=== PATIENT | male | born 1945 | race Caucasian/White ===

== ENCOUNTER 2020-07-11 14:39 | Outpatient (CLI) | payer MEDICARE, OTHER, SELFPAY ==
--- NOTE | ~2020-07-11 | MR_ITS ---
EXAMINATION: MR shoulder RT wo con DATE: 07/11/2020 15:34 INDICATION: Right shoulder pain TECHNIQUE: Magnetic resonance imaging (MRI) of the right shoulder was performed without intravenous c ontrast. Sequences included axial PD-weighted FS FSE, coronal oblique PD-weighted FS FSE, coronal obl ique T2-weighted FS FSE, sagittal PD-weighted FS FSE, and sagittal T1-weighted SE. COMPARISON: None. FINDINGS: Coracoacromial arch: The acromion undersurface is curved in morphology (type II). The coracoacromial ligament is normal. M ild acromioclavicular osteoarthritis. Rotator cuff: Moderate supraspinatus and mild infraspinatus tendinopathy. There is a moderate-sized articular sided tear extending approximately 2.3 cm AP along the superior and middle facet footplates of the suprasp inatus and infraspinatus tendons. The majority of the tear involves approximately one third to one bobo lf of the tendon thickness. The anteriormost 5 mm of the tear is more severe involving approximately two thirds of the tendon thickness. Mild subscapularis tendinopathy with small partial-thickness tear involving a small portion of the superolateral lesser tuberosity footplate of the subscapularis tend on. The long head biceps tendon is partially subluxed across the cephalad medial rim of the intertube rcular groove and into the tear defect. Normal rotator cuff muscle bulk and signal. Biceps tendon, glenoid labrum and glenohumeral cartilage: Moderate tendinopathy and likely still split tearing of the long head biceps tendon. Their peers to b e a mild partial thickness tear at the extra articular portion of the tendon involving less than 50% the tendon thickness. 3-4 mm likely loose body chronic by small amount of fluid and/or tenosynovitis in the extra articular long head biceps tendon sheath. There is a tear at the base of the superior to posterior superior glenoid labrum. More amorphous degenerative tearing of the anterosuperior inferio r glenoid labrum. Diffuse mild partial-thickness cartilage loss of the glenoid with more severe deep chondral ulceration and fissuring at the inferior glenoid. Subarticular cystic change at the anterosu perior, inferior and posterior inferior rim of the glenoid. Additional mild partial-thickness cartila ge loss with smooth chondral surface at the inferomedial aspect of the humeral head. Fluid: Physiologic amount of fluid in the glenohumeral joint. No loose osteochondral bodies. No abnormally i ncreased fluid in the subacromial/subdeltoid bursa to suggest bursitis. Bones: Bone alignment is normal. No fracture or pathologic marrow replacing process. Minimal hypertrophic an d cystic changes along the greater tuberosity likely related to chronic rotator cuff disease. IMPRESSION: 1. Mild glenohumeral osteoarthritis with high-grade chondromalacia along the inferior glenoid and rel atively diffuse labral tear/degeneration. 2. Mild bicipital tenosynovitis with moderate tendinopathy and both partial-thickness and longitudina l split tearing. 3. Moderate supraspinatus and mild infraspinatus tendinopathy with small moderate severity articular sided tear at the anterior supraspinatus tendon transitioning to a mild severity articular sided tear extending posteriorly into the infraspinatus tendon. Reviewed, dictated and finalized at location A. IMPRESSION: 1. Mild glenohumeral osteoarthritis with high-grade chondromalacia along the in ferior glenoid and relatively diffuse labral tear/degeneration. 2. Mild bicipital tenosynovitis with moderate tendinopathy and both partial-thi ckness and longitudinal split tearing. 3. Moderate supraspinatus and mild infraspinatus tendinopathy with small modera te severity articular sided tear at the anterior supraspinatus tendon
== END 2020-07-11 14:40 | disposition home or self-care (01) ==
PROVIDERS: PCP Internal Medicine; Visit Provider Orthopaedic Surgery
DX: M25.511 Pain in right shoulder (principal); M19.011 Primary osteoarthritis, right shoulder; M94.211 Chondromalacia, right shoulder; S43.431A Superior glenoid labrum lesion of right shoulder, initial encounter; M65.811 Other synovitis and tenosynovitis, right shoulder; M75.81 Other shoulder lesions, right shoulder
CPT/HCPCS: 73221

== ENCOUNTER 2020-08-11 10:31 | Outpatient (CLI) | payer MEDICARE, OTHER, SELFPAY ==
--- NOTE | 2020-08-11 10:45 | ECG_ITS ---
Measurements Intervals [place] Rate: 63 P: 10 W[place]: 171 QRS: -23 QRSD: 102 T: 16 QT: 420 QTc: 430 Interpretive Statements SINUS RHYTHM DELAYED PRECORDIAL R/S TRANSITION POSSIBLE LEFT VENTRICULAR HYPERTROPHY BASELINE ARTIFACT- I, II, III, AVR, AVL, AVF BORDERLINE ECG Electronically Signed On 08-11-2020 10:54:35 CDT by Eyad Perez D.O.
== END 2020-08-11 10:32 | disposition home or self-care (01) ==
PROVIDERS: PCP Internal Medicine; Visit Provider Orthopaedic Surgery
DX: Z01.810 Encounter for preprocedural cardiovascular examination (principal); I10 Essential (primary) hypertension
CPT/HCPCS: 93005

== ENCOUNTER → 2020-08-19 01:12 | Outpatient (CLI) | payer MEDICARE, OTHER, SELFPAY ==
[2020-08-19 19:37] LABS: SARS-CoV-2 RNA PCR Negative
== END ==
PROVIDERS: PCP Internal Medicine; Visit Provider Orthopaedic Surgery
DX: Z01.812 Encounter for preprocedural laboratory examination (principal); Z20.822 Contact with and (suspected) exposure to COVID-19
CPT/HCPCS: C9803; U0003; U0005

== ENCOUNTER 2020-08-22 00:23 | Day surgery (SDC) | payer MEDICARE, OTHER, SELFPAY ==
[2020-08-22] VITALS (11 sets, daily range): BP systolic 120–179; BP diastolic 54–82; PULSE 47–66; RESP 10–18; TEMP 36.3; O2SAT 92–98
--- NOTE | 2020-08-22 07:27 | WPDHPUPDATE1 ---
History and Physical Update Update Date/Time: 08/22/20 07:27 History and Physical has been reviewed, including an updated exam of the patient. There are NO changes in the patient's condition. Risks, benefits, and alternatives have been discussed and questions answered. Patient agrees to proceed with procedure.
--- NOTE | 2020-08-22 10:48 | WPDANESEPPF ---
Anes - Initial Pre Proc Eval Procedure: Operation Date: 08/22/20 13:00 Proposed Procedures p Right Arthroscopic Rotator Cuff Repair, Biceps Tenodesis - Charlie Pryor MD Date/Time: 08/22/20 10:48 Surgeon: Charlie Pryor MD Pre Op Diagnosis: right rotator cuff tear Patient Data Age: 75 Gender: M Height: 1.73 m Weight: Allergies Allergy/AdvReac Type Severity Reaction Status Date / Time Penicillins Allergy Unknown unknown- Verified 08/22/20 12:08 A CHILD Lobster Allergy Unknown THROAT Uncoded 08/22/20 12:08 [facility] Home Medications Medication Instructions Recorded Confirmed Type albuterol sulfate 90 mcg/actuation 2 inhalation INHALATION Q4-6H PRN 02/01/19 08/08/20 Rx aerosol inhaler #8 gm cetirizine 10 mg tablet 5 mg PO DAILY PRN #30 tablet 07/05/19 08/08/20 Rx esomeprazole magnesium 20 mg 20 mg PO DAILY #90 cap 07/05/19 08/08/20 Rx capsule,delayed release psyllium husk 0.4 gram capsule 0.4 gm PO DAILY #30 cap 07/05/19 08/08/20 Rx glucosamine-chondroitin 250 mg-200 2 tablet PO DAILY 06/12/20 08/08/20 History mg tablet multivitamin 1 tablet PO DAILY 06/12/20 08/08/20 History acetaminophen [Tylenol Ex Str 1,000 mg PO Q6H PRN 08/08/20 08/08/20 History Arthritis Pain] amlodipine 10 mg QAM 08/08/20 08/08/20 History ibuprofen 800 mg PO Q6H PRN 08/08/20 08/08/20 History ibuprofen [Advil] 200 mg PO Q6H PRN 08/08/20 08/08/20 History oxycodone-acetaminophen 5 mg-325 1 - 2 tablet PO Q4-6H PRN #30 08/21/20 Rx mg tablet tablet MDD 8 ECG: Date of Service: 08/11/20 Procedure(s): CA 12 lead EKG Accession Number(s): [id number] cc: ~ Measurements Intervals [place] Rate: 63 P: 10 [place]: 171 QRS: -23 QRSD: 102 T: 16 QT: 420 QTc: 430 Interpretive Statements SINUS RHYTHM DELAYED PRECORDIAL R/S TRANSITION POSSIBLE LEFT VENTRICULAR HYPERTROPHY BASELINE ARTIFACT- I, II, III, AVR, AVL, AVF BORDERLINE ECG Electronically Signed On 08-11-2020 10:54:35 CDT by Eyad Perez D.O. Patient hx anesthesia problems: post op nausea/vomiting Family hx anesthesia problems: none PMFSH Past Medical History Medical History (Updated 08/22/20 @ 10:49 by Donnie Ackerman MD) Asbestosis Carpal tunnel syndrome Chronic rhinitis COPD (chronic obstructive pulmonary disease) Essential hypertension Gastro-esophageal reflux disease without esophagitis Hepatitis C History of tobacco abuse Hx of hepatitis C DAGOBERTO (obstructive sleep apnea) Surgical History Surgical History H/O arthroscopy of knee (~07/05/16) Partial Medial & Lateral Menisectomy History of uvulopalatopharyngoplasty Hx of cholecystectomy Family History Family History Mother Family history of cardiovascular disease Family history of congenital heart disease Asthma Family history of coronary artery disease Father Carcinoma of colon Family history of cardiovascular disease, Onset Age: 87 Malignant neoplasm of prostate Sibling Carcinoma of colon Family history of malignant neoplasm of breast in first degree relative Patient's sister is in good health Social History Social History Smoking packs per day: 1 Smoking cigarettes per day: 20.0 Years smoked: 40 Smoking pack-years: 40.00 Smoking status: Former smoker Tobacco type: cigarettes and smokeless tobacco Smokeless tobacco user: chewing tobacco Second hand tobacco smoke exposure: No Smoking end date: 03/17/78 Additional smoking assessment comments: STATES QUIT 1978, HX OF CHEWING AFTER SMOKING-DEN
[2020-08-22] MEDS: ACETAMINOPHEN 500 MG TABLET 1000 MG PO (11:33)
[2020-08-22] MEDS: KETOROLAC 15 MG/ML VIAL (*BKC) IV PUSH (11:34)
[2020-08-22] MEDS: LACTATED RINGERS 1,000 ML 30 ML IV CONT ×3 (11:48→17:35)
--- NOTE | 2020-08-22 12:49 | WPDANESPNB ---
Anes - Peripheral Nerve Block Date/Time: 08/22/20 12:49 I have discussed with the patient/family/POA the placement of a peripheral nerve block for post-operative pain management, including associated risks, benefits, complications, and side effects. Alternative methods of post-operative analgesia were detailed. Questions were solicited and answers provided to the satisfaction of the patient/family/POA. Time-Out: A pre-procedural Time-Out was completed immediately before starting the procedure and confirmed: Patient Identification, Site, Procedure, Patient Position and the Availability of Requisite Equipment. Clinical Indications: Acute post-operative pain management requested by the operative surgeon. Nerve Block Insertion Note Anes-nerve block: supraclavicular right Patient position: supine Skin prep: chlorhexidine Needle: 22 gauge, stimulating, insulated echogenic needle. Needle length: 80 mm Technique: ultrasound (in plane) Injectate: bupivacaine 0.5% with epi 5 mcg/ml (20cc) Observations: tolerated well Complications: none Procedure start time:: 1240 Procedure end time:: 1245
[2020-08-22] MEDS: ceFAZolin 2 GM/D5W 50 ML 2 GM/50 ML BAG IVPB (12:58)
--- NOTE | 2020-08-22 15:32 | W.PM.PROC2 ---
Procedure Note - Detailed Date of Procedure 08/22/20 Pre-op Diagnosis right rotator cuff tear Post-op Diagnosis other (1. Full thickness rotator cuff tear 2. Biceps tendinopathy 3. Degenerative labral tear 4. Subacromial impingement) Procedure Performed Arthroscopic 1. Rotator cuff repair 2. Subacromial decompression 3. Biceps tenotomy and labral debridement Surgeon Charlie Pryor MD Wet Char Conveyor Tender Alyson Hawley PA-C Anesthesia general and regional Description of Procedure Preoperative antibiotics were given. An interscalene block was administered in the preoperative area. The patient was bought brought to the operating room. A general anesthetic was administered. The patient was carefully positioned in the lateral decubitus position. The head and neck were carefully positioned. The non operative extremity was also carefully positioned. The shoulder was prepped and draped in the usual sterile fashion. Examination was performed. Standard posterior and anterior arthroscopic portals were established. Inflow achieved with the arthroscopic pump using saline and epinephrine. The glenohumeral joint was carefully inspected. The glenohumeral joint showed significant circumferential degenerative labral tearing. This was treated with debridement. The slap tear and biceps were addressed with biceps tenotomy. Subscapularis showed very low-grade partial tearing which was debrided. The anterior inferior glenoid showed moderate chondromalacia. Attention was turned to the subacromial space. A complete bursectomy was performed. Acromioplasty was performed. There was a tear at the anterior supraspinatus, which was fairly narrow but there was some degeneration, and after debridement it was clear that 2 tunnels could be created for a total of 6 sutures. The rotator cuff footprint was lightly debrided. The tear configuration was carefully assessed. At this point, 2 tunnels were created at the rotator cuff. One anterior and 1 posterior. The ArthroTunneler technique was utilized. Three sutures were passed through each tunnel. All sutures were then passed through the cuff tissue. The sutures were tied arthroscopically. A rip stop technique was utilized. Additional [id number] Vicryl suture was used to more anatomically reduce the more lateral tissue. The arthroscopic instruments were removed. The wounds were closed with 3-0 Monocryl subcuticular suture and steri strips. There were no complications. A sling was applied and the patient brought to the recovery room. Estimated Blood Loss 20 Complications No immediate complications Condition stable Disposition PACU
[2020-08-22] MEDS: fentaNYL CITRATE INJ (*CRX) 100 MCG/2 ML VIAL 25 MCG IV PUSH ×3 (16:27→16:59)
[2020-08-22] MEDS: ONDANSETRON INJ 4 MG/2 ML VIAL IV PUSH (16:43)
--- NOTE | 2020-08-22 16:47 | SUR.PHASEI ---
called dr will and notified of heart rates in 47-48,now at pt side.
[2020-08-22] MEDS: FAMOTIDINE 20 MG/2 ML VIAL IV PUSH (16:57)
[2020-08-22] MEDS: diphenhydrAMINE HCl INJ 50 MG/ML VIAL 12.5 MG IV PUSH (17:05)
[2020-08-22] MEDS: DEXAMETHASONE SOD PHOS INJ 4 MG/ML VIAL IV PUSH (18:16)
--- NOTE | 2020-08-22 18:48 | SUR.PHASEII ---
PATIENT MORE ALERT, INTERACTIVE. ASSISTED WITH DRESSING. STATES NAUSEA COMES IN WAVES AND IS SLIGHTLY IMPROVED. NO EMESIS.
== END 2020-08-22 18:59 | disposition home or self-care (01) ==
PROVIDERS: PCP Internal Medicine; Visit Provider Orthopaedic Surgery
PROC: (CPT 29805; principal; 2020-08-22 13:00)
DX: S46.011A Strain of muscle(s) and tendon(s) of the rotator cuff of right shoulder, initial encounter (principal); X50.9XXA Other and unspecified overexertion or strenuous movements or postures, initial encounter; S43.431A Superior glenoid labrum lesion of right shoulder, initial encounter; M94.211 Chondromalacia, right shoulder; J44.9 Chronic obstructive pulmonary disease, unspecified; B19.20 Unspecified viral hepatitis C without hepatic coma; Z79.51 Long term (current) use of inhaled steroids; K21.9 Gastro-esophageal reflux disease without esophagitis; G47.33 Obstructive sleep apnea (adult) (pediatric); Z87.891 Personal history of nicotine dependence; E66.9 Obesity, unspecified; Z68.32 Body mass index [BMI] 32.0-32.9, adult; G89.18 Other acute postprocedural pain
CPT/HCPCS: 64415; 29827; 29826; A4565; A9270; J0690; J1100; J1200; J1885; J2250; J2405; J2704; J3010; J7120

== ENCOUNTER 2021-06-25 14:31 | Outpatient (CLI) | payer MEDICARE, OTHER, SELFPAY ==
--- NOTE | ~2021-06-25 | MR_ITS ---
EXAMINATION: MR brain/brain stem wo con EXAM DATE: 06/25/2021 15:09 INDICATION: R20.0 - Anesthesia of skin. Recent reaction to iodine contrast. Dysphagia, feels like lum p in throat. TECHNIQUE: Magnetic resonance imaging (MRI) of the brain/brain stem obtained without contrast. Juliana al T1, axial diffusion, gradient echo (T2*), T1, T2, FLAIR sequences obtained. There is no prior st udy for comparison. FINDINGS: There is punctate acute infarction in the right side of the medulla oblongata, brainstem. T here is mild microangiopathy and cerebral atrophy. There is no acute hemorrhage seen on the T2*, a he mosiderin sensitive sequence. No intraparenchymal brain mass. The ventricles are normal in size. Th ere are no extra-axial collections. Flow voids are seen in the cerebral arteries on the T2-weighted sequences consistent with their expected patency. The orbits are unremarkable. Soft tissue is unrem arkable. IMPRESSION: 1. Punctate acute right medulla oblongata infarction. 2. Mild microangiopathy and cerebral atrophy. Reviewed, dictated and finalized at location B.
== END 2021-06-25 14:32 | disposition home or self-care (01) ==
PROVIDERS: PCP Internal Medicine; Visit Provider Internal Medicine
DX: R13.10 Dysphagia, unspecified (principal); R20.0 Anesthesia of skin; R26.9 Unspecified abnormalities of gait and mobility; I63.89 Other cerebral infarction; I73.9 Peripheral vascular disease, unspecified; G31.89 Other specified degenerative diseases of nervous system
CPT/HCPCS: 70551

== ENCOUNTER 2021-06-26 07:31 | Outpatient (CLI) | payer MEDICARE, OTHER, SELFPAY ==
--- NOTE | ~2021-06-26 | XR_ITS ---
EXAMINATION: XR barium swallow modified DATE: 06/26/2021 08:29 INDICATION: Dysphagia, unspecified TECHNIQUE: Modified barium esophagram was performed by myself to administered fluoroscopy, in conjun ction with speech pathologist who administered barium in varying consistencies as per speech patholog ist documentation. This was recorded on tape. A single fluoroscopic spot image was recorded. The DAP for this procedure was 2.8 Gycm2. Fluoroscopy exposure time was 3.5 minutes. FINDINGS: The epiglottis is fixed in position. There are exuberant bridging anterior osteophytes of t he visualized cervical spine. Oral stage: Adequate function. Pharyngeal phase: Adequate function. Laryngeal penetration: None. Aspiration: None. Laryngeal sensitivity: Present. IMPRESSION: Fixed position of the epiglottis. Please refer to speech pathologist findings and specifi c feeding recommendations. Reviewed, dictated and finalized at location A. IMPRESSION: Fixed position of the epiglottis. Please refer to speech pathologis t findings and specific feeding recommendations.
--- NOTE | 2021-06-26 16:19 | STOPEVAL ---
Thank you for referring Parker Tyson to [facility].? This patient had significant difficulty with swallowing. Please send new order for Speech Therapy for swallowing with diagnosis of Dysphagia. Thank you! I agree with and certify that the following plan of care is medically necessary. Referring Physician Date Attending Provider: Nick Jessica DO Therapy Assessment Status Assessment Status Assessment Status Evaluation Outpatient Past Medical History Neurological History Hx Cerebrovascular Accident (CVA) Yes: Reports CVA possible 12/06 Cardiovascular History Hx Hypertension Yes Hx Other Cardiac Disorders Yes: PT DENIES CARDIAC SYMPTOMS Respiratory History Hx Chronic Obstructive Pulmonary Disease Yes (COPD) Hx Sleep Apnea Yes Gastrointestinal History Hx Cholecystectomy Yes Hx Gastroesophageal Reflux Disease Yes Hx Hepatitis Yes: HX HEP C 1970 - STATES CLEAR NOW Genitourinary History Hx Kidney Stones Yes: PASSED ON OWN Musculoskeletal History Hx Arthritis Yes Hx Orthopedic Surgery Yes: BLATERAL CTR, LT ROTATOR CUFF REPAIR, LT KNEE ATHROSCOPY Hx Other Musculoskeletal Disorders Yes: RT ROTATOR CUFF TEAR Hematological History Hx Blood Transfusion Reaction Yes: 1970 Endocrine History Hx Endocrine Disorders No Significant History HEENT History Hx Cataracts Yes: NO SURGERY Hx Tonsillectomy Yes Hx Sinus Problems Yes: SURGERY, SEASONAL ALLERGIES Hx Other HEENT Disorders Yes: GLASSES, UPP Integumentary History Hx Eczema Yes: HANDS Reproductive History Hx Reproductive Disorders No Significant History Psychosocial History Hx Psychiatric Disorders No Significant History Pain History Has Past Pain Affected Your Daily Life Yes: RT SHOULDER Anesthesia History Hx Anesthesia Reactions No Significant History Pain Assessment Timing of Pain Assessment Timing of Pain Assessment Assessment Self Report Self Report Pain Level 0 Pain Score Pain Score 0: Self Report Modified Barium Swallow Evaluation Consistency Barium Pill Oral Preparatory Symptoms Within Functional Limits Oral Phase Symptoms Within Functional Limits Pharyngeal Phase Symptoms Reduced Laryngeal Elevation, Residue in Valleculae,Residue/ Pyriform Sinus Severity of Vallecular Residue Severe - > 50% Filled to Epiglottic Rim Severity of Pyriform Sinus Residue None - 0% No Residue 8 Point Laryngeal Penetration-Aspiration Material Does Not Enter Airway
== END 2021-06-26 07:32 | disposition home or self-care (01) ==
PROVIDERS: PCP Internal Medicine; Visit Provider Internal Medicine
DX: R20.0 Anesthesia of skin (principal); R13.10 Dysphagia, unspecified
CPT/HCPCS: 92611

== ENCOUNTER 2021-06-29 16:15 | Outpatient (CLI) | payer MEDICARE, OTHER, SELFPAY ==
--- NOTE | ~2021-06-29 | US_ITS ---
EXAMINATION: US carotid duplex BI DATE: 06/29/2021 16:49 INDICATION: Cerebral infarction TECHNIQUE: Grayscale, color Doppler, and pulsed Doppler images of the cervical carotid arteries were obtained. The degree of vessel stenosis is placed in one of the following categories: normal, <50%, 5 0-69%, >=70% but less than near-occlusion, near-occlusion, or total occlusion. Note that percent sten osis relative to normal distal artery lumen diameter is indirectly measured from velocity measurement s as described by Miko, et al. Radiology 2003; 229:340-346. COMPARISON: None. FINDINGS: RIGHT: The right common carotid artery (CCA) peak systolic velocity (PSV) is 98.6 cm/s. The right internal c arotid artery (ICA) PSV is 67.3 cm/s. The right ICA end-diastolic velocity (EDV) is 25.6 cm/s. The ri t ICA/CCA PSV ratio is 0.7. Grayscale and color Doppler images yield an estimate of less than 50% d iameter reduction from plaque in the ICA. The external carotid artery (ECA) PSV is 90.8 cm/s. There i s antegrade flow in the right vertebral artery. LEFT: The left CCA PSV is 93.3 cm/s. The left ICA PSV is 76.8 cm/s. The left ICA EDV is 24.8 cm/s. The left ICA/CCA PSV ratio is 0.8. Grayscale and color Doppler images yield an estimate of less than 50% diam eter reduction from plaque in the ICA. The ECA PSV is 74.6 cm/s. There is antegrade flow in the left vertebral artery. IMPRESSION: 1. Less than 50% stenosis in the right internal carotid artery. 2. Less than 50% stenosis in the left internal carotid artery. Reviewed, dictated and finalized at Location A. Reviewed, dictated and finalized at location A.
== END 2021-06-29 16:16 | disposition home or self-care (01) ==
PROVIDERS: PCP Internal Medicine; Visit Provider Internal Medicine
DX: I63.9 Cerebral infarction, unspecified (principal); I65.23 Occlusion and stenosis of bilateral carotid arteries
CPT/HCPCS: 93880

== ENCOUNTER 2021-07-23 07:47 | Outpatient (CLI) | payer MEDICARE, OTHER, SELFPAY ==
--- NOTE | 2021-07-23 07:55 | ECHO_ITS ---
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 Strain analysis performed. Summary 1. Complete two-dimensional, color flow and Doppler transthoracic echocardiogram is performed. 2. Left ventricular chamber dimension is normal. 3. Left ventricular systolic function is normal, estimated at 60-65%. 4. There is moderately increased left ventricular wall thickness. 5. The left ventricular diastolic function is grade I diastolic dysfunction. 6. E/e' 6 is not elevated. 7. Global longitudinal strain is abnormal at -13.4%. 8. Left atrial chamber dimension is mildly enlarged. 9. Moderate lipomatous hypertrophy of the atrial septum. 10. There is mild aortic valve sclerosis. 11. The mitral valve has mildly calcified annulus. Left Ventricle E/e' 6 is not elevated. Global longitudinal strain is abnormal at -13.4%. Left ventricular chamber dimension is normal. Left ventricular systolic function is normal, estimated at 60-65%. There is moderately increased left ventricular wall thickness. The left ventricular diastolic function is grade I diastolic dysfunction. Right Ventricle Right ventricular systolic function is normal and with normal TAPSE 2.0 cm. Right ventricular chamber dimension is normal. Left Atria Left atrial chamber dimension is mildly enlarged. Right Atria Right atrial chamber dimension is normal. Atrial Septum Moderate lipomatous hypertrophy of the atrial septum. Aortic Valve The aortic valve is trileaflet. There is mild aortic valve sclerosis. There is no aortic valve stenosis. There is no aortic valve regurgitation. Pulmonic Valve There is no pulmonic regurgitation. Mitral Valve The mitral valve has mildly calcified annulus. There is no mitral valve stenosis. There is no mitral valve regurgitation. Tricuspid Valve There is no tricuspid valve regurgitation. Pericardium/Pleural There is no pericardial effusion. Inferior Vena Cava Normal inferior vena cava with >50% collapse upon inspiration consistent with normal right atrial pressure, 5 mmHg. Aorta The aortic root size at the sinus of Valsalva is normal. Left Ventricular Outflow Tract Name Value Normal LVOT 2D LVOT Diameter 2.1 cm LVOT Doppler LVOT Peak Gradient 5 mmHg LVOT Mean Gradient 2 mmHg LVOT VTI 23 cm LVOT VTI/AV VTI Ratio 0.9 LVOT Stroke Volume
== END 2021-07-23 07:48 | disposition home or self-care (01) ==
LOC: ANHCARD 07:49
PROVIDERS: PCP Internal Medicine; Visit Provider Internal Medicine
DX: I63.9 Cerebral infarction, unspecified (principal)
CPT/HCPCS: 93306

== ENCOUNTER 2021-07-25 10:00 | Outpatient (RCR) | payer MEDICARE, OTHER, SELFPAY ==
--- NOTE | 2021-07-13 16:04 | STOPEVAL ---
SPEECH THERAPY EVALUATION FOR SWALLOWING Thank you for referring Parker Tyson to [facility].? The patient is scheduled to be seen for therapy? 1x/week for 4 weeks. Please review, sign, date and return this plan of care [place]. I agree with and certify that the following plan of care is medically necessary. 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 Additional Evaluation Detail Cannot feel leg on left side; reports his gait is off as a result of the lack of feeling . Subjective Information The reported that as Query Text:As Reported By Patient/ patient talks, his voice Family becomes more hoarse and raspy, and by the evening or after he has been on the phone, he has to repeat himself in order to be understood. Patient is on CPAP overnight and this dries out his throat. Throat clearing constantly, COPD, coughing and choking while eating. Pain Assessment Timing of Pain Assessment Timing of Pain Assessment Assessment Self Report Self Report Pain Level 0 Pain Score Pain Score 0: Self Report Bedside Swallow Evaluation Consistency Solid Consistency Uncontrolled 1 Other Swallow Amount Two zoila cracker squares Method of Presentation Finger/Hand Behaviors Observed Complaint of High Obstruction, Complaint of Low Obstruction, Complaint of Reflux,Coughing/ Choking,Effortful Swallow, Multiple Swallows Used,Throat Clearing Occurrence of Coughing During Vocal Quality After Swallowing Hoarse Swallow Palpation Results Good Swallow Initiation,Strong Laryngeal Elevation Pureed Consistency 5 mL Method of Presentation Spoon Behaviors Observed Complaint of High Obstruction, Complaint of Low Obstruction, Complaint of Reflux,Coughing/
--- NOTE | 2021-07-31 10:58 | STOPEVAL ---
SPEECH THERAPY DISCHARGE SUMMARY Thank you for referring Parker Tyson to [facility].? I agree with discharge from skilled Speech Therapy. Referring Physician Date Attending Provider: Nick Jessica DO Therapy Assessment Status Assessment Status Assessment Status Discharge Pain Assessment Timing of Pain Assessment Timing of Pain Assessment Pre-Treatment Self Report Self Report Pain Level 0 Pain Score Pain Score 0: Self Report Bedside Swallow Evaluation Consistency Solid Consistency Uncontrolled 1 Other Swallow Amount Ankur cracker Method of Presentation Finger/Hand Behaviors Observed Apparently Normal Swallow, Complaint of High Obstruction, Complaint of Reflux,Multiple Swallows Used Occurrence of Coughing None Vocal Quality After Swallowing Clear Swallow Palpation Results Good Swallow Initiation,Strong Laryngeal Elevation Pureed Consistency 5 mL Method of Presentation Spoon Behaviors Observed Apparently Normal Swallow Occurrence of Coughing None Vocal Quality After Swallowing Clear Swallow Palpation Results Good Swallow Initiation,Strong Laryngeal Elevation Thin Uncontrolled 1 Other Swallow Amount Water bottle with squeeze lid Behaviors Observed Apparently Normal Swallow Occurrence of Coughing None Vocal Quality After Swallowing Clear Swallow Palpation Results Good Swallow Initiation,Strong Laryngeal Elevation Tolerance Tolerance For Swallow Slight Distress Alertness Awake/Safe Cooperativeness Calm,Cooperative Attention Attentive Awareness of Swallowing Problem Aware,Safe Awareness of Secretions Aware Postural Control Moves Independently Fatigability Does Not Fatigue Ability to Follow Directions Independent Recommendations Feeding Type Recommended Oral Supervision Recommended Eat Independently Positions Used Chin Tucked (Flexed),Upright Food Consistency Regular, Level 7 Liquid Consistency Thin (0) Mealtime Procedures Recommended Alternate Solids/Liquids, Forceful Swallow,Multiple Swallows,Small Bites/Sips Bedside Swallow Comments See Clinical Summary. ST Clinical Summary Clinical Summary ST Clinical Summary Patient has been seen for an outpatient Bedside Swallow Evaluation and three treatment sessions addressi
== END 2021-07-31 15:57 | disposition home or self-care (01) ==
LOC: ANHST 10:00
PROVIDERS: PCP Internal Medicine; Visit Provider Internal Medicine
DX: I63.9 Cerebral infarction, unspecified (principal)
CPT/HCPCS: 92526; 92610

== ENCOUNTER → 2021-10-30 14:37 | Outpatient (CLI) | payer MEDICARE, OTHER, SELFPAY ==
--- NOTE | ~2021-10-30 | XR_ITS ---
EXAMINATION: XR hip LT min 2V DATE: 10/30/2021 15:03 INDICATION: Left hip pain. TECHNIQUE: 2 views of left hip were obtained. COMPARISON: None. FINDINGS: Bone alignment is normal. No fracture. There is mild left hip osteoarthritis. IMPRESSION: 1. Mild left hip osteoarthritis. Reviewed, dictated and finalized at location A.
== END ==
PROVIDERS: PCP Internal Medicine; Visit Provider Nurse Practitioner Family
DX: M16.12 Unilateral primary osteoarthritis, left hip (principal)
CPT/HCPCS: 73502

== ENCOUNTER → 2021-11-08 09:06 | Outpatient (CLI) | payer MEDICARE, OTHER, SELFPAY ==
--- NOTE | ~2021-11-08 | MR_ITS ---
. EXAMINATION: MR lumbar spine wo con DATE: 11/08/2021 09:59 INDICATION: Lumbar radiculopathy. Low back pain. Left leg pain and numbness. TECHNIQUE: Magnetic resonance imaging (MRI) of the lumbar spine was performed without intravenous con trast. Sequences included sagittal T2-weighted FSE, sagittal T2-weighted FS FSE, sagittal T1-weighted FSE, and axial T2-weighted FSE. COMPARISON: Lumbar spine radiographs 01/22/2019 FINDINGS: There is 5 degrees levocurvature of lumbar spine. There are hemangiomas in L1 and the sacru m. Vertebral body heights are normal. There is mildly decreased disc height at L2-L3 and moderately d ecreased disc height at L5-S1. The distal spinal cord signal intensity is normal. The conus medullari s is at T12-L1. The following disc levels are specifically discussed: L1-L2: The disc does not extend beyond the endplate margin. There is mild bilateral facet joint osteo arthritis. There is no neural foraminal stenosis. There is no central canal stenosis. L2-L3: The disc is bulging. There is mild bilateral facet joint osteoarthritis. There is mild bilater al neural foraminal stenosis. There is no central canal stenosis. L3-L4: The disc is bulging. There is mild bilateral facet joint osteoarthritis. There is mild bilater al neural foraminal stenosis. There is no central canal stenosis. L4-L5: The disc is bulging. There is moderate bilateral facet joint osteoarthritis. There is mild socrates ateral neural foraminal stenosis. There is mild central canal stenosis. L5-S1: The disc is bulging and has an annular fissure. There is severe bilateral facet joint osteoart hritis. There is mild right and moderate left neural foraminal stenosis. There is mild central canal stenosis. IMPRESSION: 1. Moderate lumbar spondylosis. Reviewed, dictated and finalized at location A.
== END ==
PROVIDERS: PCP Internal Medicine; Visit Provider Nurse Practitioner Family
DX: M47.26 Other spondylosis with radiculopathy, lumbar region (principal)
CPT/HCPCS: 72148

== ENCOUNTER 2021-11-27 12:35 | Emergency (ER) | payer MEDICARE, OTHER, SELFPAY ==
--- NOTE | 2021-11-27 12:47 | ED.WOUNDLAC ---
HPI - Wound/Laceration General Chief Complaint: Wound/Laceration Stated Complaint: right hand injury Time Seen by Provider: 11/27/21 12:54 Source: patient, RN notes reviewed and old records reviewed Mode of arrival: ambulatory Limitations: no limitations History of Present Illness HPI narrative: 76-year-old male presents to the [facility] with right hand dorsal aspect laceration. Patient states it occurred about 2 hours prior to arrival. Was having trouble getting the bleeding to stop. Not on blood thinners. Full range of motion noted. Sensation intact distal to injury and capillary refill under 2 seconds. Strong box toe stitcher noted. Last tetanus was May 2017 per patient Extremity Location: Right: hand Patient tetanus UTD: Yes (05/2017) Related Data Home Medications Medication Instructions Recorded Confirmed glucosamine-chondroitin 250 mg-200 2 tablet PO DAILY 06/12/20 08/30/21 mg tablet (Osteo Bi-Flex) multivitamin 1 tablet PO DAILY 06/12/20 08/30/21 Allergies Allergy/AdvReac Type Severity Reaction Status Date / Time Iodinated Contrast Media Allergy Mild Other Verified 08/30/21 11:04 Penicillins Allergy Unknown unknown- Verified 08/30/21 11:04 A CHILD shellfish derived Allergy Unknown Swelling Verified 08/30/21 11:04 of Lip/Tongue/Throat Lobster Allergy Unknown THROAT Uncoded 08/30/21 11:04 SWELLS Review of Systems Review of Systems: All systems reviewed & are unremarkable except as noted in HPI and below Constitutional: Constitutional: Reports no additional constitutional complaints, Denies chills and Denies fever(s) Eyes: Eyes: Reports no additional eye complaints ENT: Reports system reviewed and no additional complaints, except as documented Cardiovascular: Cardiovascular: Reports no additional cardiovascular complaints Respiratory: Respiratory: Reports no additional respiratory complaints Gastrointestinal: Gastrointestinal: Reports no additional gastrointestinal complaints Musculoskeletal: Musculoskeletal: Reports no additional musculoskeletal complaints Integumentary/Breasts: Skin/Breast: Reports as per HPI Neurologic: Reports system reviewed and no additional complaints, except as documented Psychiatric: Psychiatric: Reports no additional psychiatric complaints Allergic/Immunologic: Allergic/Immunologic: Reports no additional allergic/immunologic complaints [facility] Past Medical History Medical History Asbestosis Carpal tunnel syndrome Chronic rhinitis COPD (chronic obstructive pulmonary disease) Essential hypertension Gastro-esophageal reflux disease without esophagitis Hepatitis C History of CVA (cerebrovascular accident) History of tobacco abuse Hx of hepatitis C DAGOBERTO (obstructive sleep apnea) Surgical History Surgical History H/O arthroscopy of knee (~07/05/16) Partial Medial & Lateral Menisectomy History of repair of right rotator cuff (~08/22/20) Biceps Tenodesis History of uvulopalatopharyngoplasty Hx of cholecystectomy Family History Family History Mother Family history of cardiovascular disease Family history of congenital heart disease Asthma Family history of coronary artery disease Father Carcinoma of colon Family history of cardiovascular disease, Onset Age: 87 Malignant neoplasm of prostate Sibling Carcinoma of colon Family history of malignant neoplasm of breast in first degree relative Patient's sister is in good health Social History Social History Smoking packs per day: 1 Smoking cigarettes per day: 20.0 Years smoked: 40 Smoking pack-years: 40.00 Smoking status: Former smoker Tobacco type: cigarettes and smokeless tobacco Smokeless tobacco user: chewing tobacco Second hand tobacco smoke exposure: No S
--- NOTE | 2021-11-27 12:47 | PC.NURSE ---
Tdap given january of 2017
[2021-11-27 12:52] VITALS: BP 165/69; PULSE 82; RESP 20; TEMP 37.6; O2SAT 100
== END 2021-11-27 13:44 | disposition home or self-care (01) ==
PROVIDERS: Emergency Provider Nurse Practitioner
DX: S01.91XA Laceration without foreign body of unspecified part of head, initial encounter (principal); X58.XXXA Exposure to other specified factors, initial encounter; Z87.891 Personal history of nicotine dependence; J44.9 Chronic obstructive pulmonary disease, unspecified; I10 Essential (primary) hypertension; K21.9 Gastro-esophageal reflux disease without esophagitis; Z86.73 Personal history of transient ischemic attack (TIA), and cerebral infarction without residual deficits; G47.33 Obstructive sleep apnea (adult) (pediatric); Z86.19 Personal history of other infectious and parasitic diseases; J61 Pneumoconiosis due to asbestos and other mineral fibers
CPT/HCPCS: 12001; 99212; G0463

== ENCOUNTER 2021-12-13 08:35 | Outpatient (CLI) | payer MEDICARE, OTHER, SELFPAY ==
--- NOTE | ~2021-12-13 | XR_ITS ---
EXAMINATION: XR barium swallow modified DATE: 12/13/2021 09:25 INDICATION: Cough and dysphagia TECHNIQUE: Modified barium esophagram was performed by myself to administered fluoroscopy, in conjun ction with speech pathologist who administered barium in varying consistencies as per speech patholog ist documentation. This was recorded on tape. A single fluoroscopic spot image was recorded. Fluorosc opy exposure time was 2.6 minutes. The DAP for this procedure was 2.11 Gycm2. FINDINGS: Oral stage: Adequate function. Pharyngeal phase: Reduced epiglottal inversion, vallecular residue. Laryngeal penetration: Present within liquids. Aspiration: None. Laryngeal sensitivity: Present. IMPRESSION: Abnormal modified barium swallow. Please refer to speech pathologist findings and specifi c feeding recommendations. Reviewed, dictated and finalized at location A. IMPRESSION: Abnormal modified barium swallow. Please refer to speech pathologis t findings and specific feeding recommendations.
--- NOTE | ~2021-12-13 | CT_ITS ---
EXAMINATION: CT diagnostic chest wo con DATE: 12/13/2021 08:55 INDICATION: Lung nodules TECHNIQUE: Computed tomography (CT) of the chest was performed without intravenous contrast. The dose -length product (DLP) was 223.36 mGy-cm. Automated exposure control and iterative reconstruction tech liveBooksque were employed. COMPARISON: 10/08/2016 FINDINGS: The lungs are free of focal airspace opacities. Calcified pleural plaques are again noted, which can be seen in the setting of prior asbestos exposure. No pleural effusion or pneumothorax. No pathologically enlarged thoracic lymph nodes are identified. The heart size is normal. Calcified michael nary artery atherosclerosis is noted. Cysts of the liver measure up to 2.0 cm. The gallbladder is maikel gically absent. There is mild thoracic spondylosis. IMPRESSION: 1. No suspicious lung nodules identified. 2. Calcified pleural plaques which can be seen in the setting of prior asbestos exposure. Reviewed, dictated and finalized at location A.
--- NOTE | 2021-12-13 15:43 | REHSTMBS ---
Assessment and note entered by Glenis Auguste, SECRETARY TO [employer]IONERS Modified Barium Swallow Evaluation Feeding Type Recommended Oral Food Consistency Regular, Level 7 Liquid Consistency Thin (0) ST Clinical Summary MODIFIED BARIUM SWALLOW STUDY (MBS) This patient was seen for a Modified Barium Swallow study at the request of his physician to assess his progress in swallowing since the previous MBS. Patient has a history of CVA, COPD, and requires CPAP at night. Patient was seen for a previous MBS following signs of a CVA; on that MBS, he exhibited good laryngeal elevation but poor epiglottal inversion resulting in risk for aspiration. At that time he was mostly preventing penetration into the airway however reported that after most swallows, he senses residual in the throat and airway and coughs to clear and either re-swallow or expectorate. He then underwent Speech Therapy treatment and was provided with swallowing strengthening exercises along with safe swallowing strategies and he exhibited significant improvement in symptoms. He continued to practice exercises following his discharge from direct Speech Therapy. Today he reports he knows he has improved and expects to see improvement although he also voices that he still has to cough at times. He recalls that he was told that the epiglottis is not inverting during swallows and expresses curiousity if it is moving yet. Patient presented with the following impairments: Oral Stage: Within normal limits Pharyngeal Stage: Reduced epiglottal inversion ( however improved over previous MBSS) characterized as under-epiglottis touching pharynx wall for improved closure but poor actual inversion. Trace penetration noted on uncontrolled thin liquids. Vallecular residue noted, clearing with secondary swallows. Cricopharyngeal Stage: Within normal limits Results indicate this patient is able to move the epiglottis and close off the airway due to proximity of the under portion of the epiglottis to the pharynx however there is minimal actual epiglottal inversion.
== END 2021-12-13 08:36 | disposition home or self-care (01) ==
PROVIDERS: PCP Internal Medicine; Visit Provider Nurse Practitioner Family
DX: R05.3 Chronic cough (principal); R91.8 Other nonspecific abnormal finding of lung field; R13.10 Dysphagia, unspecified
CPT/HCPCS: 71250; 92611

== ENCOUNTER 2022-01-03 09:11 | Outpatient (CLI) | payer MEDICARE, OTHER, SELFPAY ==
--- NOTE | 2022-01-11 15:52 | WPDPFTINT ---
PFT Procedure Performed PFT Procedure Performed Spirometry with Pre/Post Bronchodilator Plethysmography (Lung Vol) Diffusing Cap (DLCO) PFT Interpretation DOS: 01/03/2022 REQUESTING: Dr Romo REASON FOR TESTING: Shortness of breath PULMONARY FUNCTION TESTS Results are reliable and reproducible. Spirometry: pre bronchodilator FEV1 is 3 L, 113% predicted, normal. Pre bronchodilator FVC 4.38 L, 123%, normal. FEV1/FVC % is 69%, normal. After bronchodilator, FEV1 increases 5% which is not significant, FVC does not change. Lung volumes: Total lung capacity 6.25 L, 97%, normal. Residual volume 1.87 L, 77% predicted, normal. RV/TLC is 30%, normal. No hyperinflation or air trapping. Airway resistance 171%, increased. Diffusion: DLCO Twenty-three, 100% predicted, normal. DLCO/VA is 3.91, normal, 101% predicted. Flow volume loop: Unremarkable. IMPRESSION: normal spirometry, lung volumes and diffusion. No change with bronchodilator. Lack of response to bronchodilator should not preclude use if clinically indicated. Glenis Wong MD
== END 2022-01-03 09:12 | disposition home or self-care (01) ==
LOC: ANHPFT 09:13
PROVIDERS: PCP Internal Medicine; Visit Provider Internal Medicine Pulmonary Disease
DX: R06.00 Dyspnea, unspecified (principal)
CPT/HCPCS: 94060; 94726; 94729

== ENCOUNTER 2022-07-24 12:34 | Outpatient (CLI) | payer MEDICARE, OTHER, SELFPAY ==
[2022-07-24 19:44] LABS: Basophils Percent Auto 0.4 % (0.2-1.2); Eosinophils Absolute Auto 0.2 K/mm3 (0-0.3); Eosinophils Percent Auto 2.8 % (0-4.4); Hematocrit 42.3 % (42.0-52.0); Hemoglobin 13.6 g/dL (14.0-18.0); Immature Granulocyte Absolute 0.03 K/mm3 (0.00-0.031); Immature Granulocyte Percent A 0.4 % (0-0.5); Lymphocytes Absolute Auto 1.73 K/mm3 (0.9-3.2); Lymphocytes Percent Auto 22.8 % (18.3-44.2); Mean Corpuscular HGB Conc 32.2 g/dl (32-36); Mean Corpuscular Hemoglobin 27.8 pg (26-34); Mean Corpuscular Volume 86.5 fl (80-100); Mean Platelet Volume 10.8 fl (7.4-10.4); Monocytes Absolute Auto 0.7 K/mm3 (0.1-0.6); Monocytes Percent Auto 9.7 % (2.6-8.5); Neutrophils Absolute Auto 4.9 K/mm3 (1.3-6.7); Neutrophils Percent Auto 63.9 % (45.5-73.1); Platelet Count Result 165 k/mm3 (150-375); Red Blood Count 4.89 M/mm3 (4.6-6.20); Red Cell Distribution Width 14.5 % (11.5-14.5); White Blood Count 7.6 K/mm3 (4.5-10.0)
[2022-07-24 21:20] LABS: Alanine Aminotransferase 21 U/L (6-50); Albumin Level 4.1 g/dL (3.5-5.1); Alkaline Phosphatase 59 U/L (38-126); Anion Gap 8 mmol/L (8-16); Aspartate Amino Transferase 27 U/L (17-59); Bilirubin,Total 0.4 mg/dL (0.2-1.3); Blood Urea Nitrogen 14 mg/dL (9-20); Calcium 8.9 mg/dL (8.4-10.2); Carbon Dioxide 27 mmol/L (22-30); Chloride 104 mmol/L (98-107); Cholesterol 128 mg/dL (0-200); Estimated Glomerular Filt Rate > 60; Glucose 83 mg/dL (65-110); HDL Direct 25 mg/dL; Potassium 4.3 mmol/L (3.4-5.0); Sodium 139 mmol/L (137-145); Triglycerides 189 mg/dL (<150)
[2022-07-24 21:22] LABS: Anion Gap 6 mmol/L (8-16); Blood Urea Nitrogen 13 mg/dL (9-20); Calcium 8.9 mg/dL (8.4-10.2); Carbon Dioxide 28 mmol/L (22-30); Chloride 104 mmol/L (98-107); Estimated Glomerular Filt Rate > 60; Glucose 82 mg/dL (65-110); Potassium 4.2 mmol/L (3.4-5.0); Sodium 138 mmol/L (137-145)
[2022-07-24 21:32] LABS: LDL Cholesterol Direct 72 mg/dL
[2022-07-24 21:52] LABS: Prostate Specific Antigen 3.1 ng/mL (< OR = 4.0)
[2022-07-24 22:08] LABS: Hemoglobin A1C 5.4 % (<5.7)
[2022-07-24 22:29] LABS: Folic Acid > 20.0 ng/mL (2.76->20)
== END 2022-07-24 12:35 | disposition home or self-care (01) ==
LOC: ANHGOSHLAB 12:38
PROVIDERS: Internal Medicine; PCP Internal Medicine; Visit Provider Internal Medicine
DX: I10 Essential (primary) hypertension (principal); R53.83 Other fatigue; Z86.19 Personal history of other infectious and parasitic diseases; N40.0 Benign prostatic hyperplasia without lower urinary tract symptoms; Z12.5 Encounter for screening for malignant neoplasm of prostate; B19.20 Unspecified viral hepatitis C without hepatic coma; R73.9 Hyperglycemia, unspecified
CPT/HCPCS: 36415; 80048; 80053; 80061; 82607; 82746; 83036; 84153; 84443; 85025; G0103

== ENCOUNTER 2022-10-28 13:48 | Outpatient (CLI) | payer MEDICARE, OTHER, SELFPAY ==
[2022-10-30 19:04] LABS: NIL 0.02 IU/mL; Quantiferon TB Plus, 1T NEGATIVE (NEGATIVE)
== END 2022-10-28 13:49 | disposition home or self-care (01) ==
LOC: ANHGOSHLAB 13:58
PROVIDERS: PCP Internal Medicine
DX: L40.0 Psoriasis vulgaris (principal)
CPT/HCPCS: 36415; 86480

== ENCOUNTER 2022-11-01 07:45 | Outpatient (CLI) | payer MEDICARE, OTHER, SELFPAY ==
[2022-11-01 08:33] LABS: Hematocrit 43.8 % (42.0-52.0); Hemoglobin 14.1 g/dL (14.0-18.0); Mean Corpuscular HGB Conc 32.2 g/dl (32-36); Mean Corpuscular Hemoglobin 28.4 pg (26-34); Mean Corpuscular Volume 88.3 fl (80-100); Mean Platelet Volume 10.1 fl (7.4-10.4); Platelet Count Result 153 k/mm3 (150-375); Red Blood Count 4.96 M/mm3 (4.6-6.20); Red Cell Distribution Width 14.3 % (11.5-14.5); White Blood Count 6.2 K/mm3 (4.5-10.0)
[2022-11-01 08:35] LABS: Appearance Urine Clear (Clear); Bilirubin Urine Negative (Negative); Blood Urine Negative (Negative); Color Urine Yellow (Yellow); Glucose Urine UA Negative (Negative); Ketones Urine Negative (Negative); Leukocyte Esterase Ur Negative LEU/UL (Negative); Nitrate Urine Negative (Negative); Protein Urine Negative (Negative); Urobilinogen Urine 0.2 mg/dL (<2.0)
[2022-11-01 08:36] LABS: Add Urine Microscopic? NO
[2022-11-01 08:49] LABS: Prothrombin Time 13.3 Seconds (11.1-14.7)
[2022-11-01 08:50] LABS: Anion Gap 7 mmol/L (8-16); Blood Urea Nitrogen 12 mg/dL (9-20); Calcium 9.3 mg/dL (8.4-10.2); Carbon Dioxide 29 mmol/L (22-30); Chloride 101 mmol/L (98-107); Estimated Glomerular Filt Rate > 60; Glucose 88 mg/dL (65-110); Partial Thromboplastin Time 30.6 SECONDS (22.3-36.8); Potassium 3.7 mmol/L (3.4-5.0); Sodium 137 mmol/L (137-145)
== END 2022-11-01 07:46 | disposition home or self-care (01) ==
LOC: ANHSURGERY 07:49
PROVIDERS: PCP Internal Medicine; Visit Provider Neurological Surgery
DX: M48.061 Spinal stenosis, lumbar region without neurogenic claudication (principal); Z01.818 Encounter for other preprocedural examination
CPT/HCPCS: 36415; 80048; 81003; 85027; 85610; 85730

== ENCOUNTER 2022-11-07 00:53 | Day surgery (SDC) | payer MEDICARE, OTHER, SELFPAY ==
[2022-10-28 09:33] VITALS: BMI 30.9
--- NOTE | 2022-10-28 09:50 | PC.NURSE ---
PRE-OP INSTRUCTIONS, PLEASE READ CAREFULLY Report to the Outpatient Waiting Room, entrance under the green pavilion located off [facility], at time _1130_ on date _11/07/22_. Planned Procedure Time: _1:30 PM_. PACK A SMALL OVERNIGHT BAG AND LEAVE IN THE CAR Time changes happen often and if your time is changed the preop area will call you the afternoon before. - You and your visitor will be asked to self-screen and do not enter if you have any COVID symptoms. - A mask is optional within the hospital at this time. -VISITING HOURS 8AM-8PM Patients may have clear liquids (water, carbonated beverages, clear teas, apple juice) until 3 hours prior to surgery (1030 AM) with a maximum of 20 ounces. - No food from midnight until time of surgery Take the following medications with a SIP of water the morning of surgery: _AMLODIPINE, INHALER_ DO NOT STOP ANY OF YOUR OTHER PRESCRIPTION MEDICATIONS PRIOR TO SURGERY ?EXCEPT THE FOLLOWING Medications to discontinue per DR. FABIAN - _ASPIRIN 7 DAYS PRIOR TO SURGERY, Date to take last dose 10/30/22_ Medications to discontinue per ANESTHESIA - _MULTIVITAMIN, OSTEO BI-FLEX 3 DAYS PRIOR TO SURGERY, Date to take last dose 11/03/22_ Please no make-up, nail danish, hairspray, perfume, deodorant, or body powder the day of surgery. No jewelry (including any body piercings) or valuables the day of surgery, leave them at home. Please take a shower or bath the night before, or the morning of, surgery with an antibacterial soap. Wear comfortable, loose fitting clothing. - Jewelry must be removed prior to entering the operating room. Rings and piercings that are not removed may be cut off. - The hospital will not accept responsibility for valuables. - Please leave all valuables, including medications, at home the day of surgery. If you are going home after surgery, a licensed dumpcart driver must drive you home. - NO public transportation without another adult if you receive anesthesia. - We recommend that an adult stay with you for 24 hours following discharge. - We also recommend that you do not drive, make important decision, drink alcoholic beverages, or take any drugs that were not prescribed by your health care provider for at least 24 hours after your discharge time. Follow any additional instructions given to you from your surgeon. If you or anyone in your household have experienced Covid symptoms in the past week, please notify your surgeon or the nurse liaison at the phone number below for possible testing. Telephone instructions given to _PATIENT_and asked if any additional questions and then verbalized understanding. Patient advised to call surgeon office or pre surgery nurse liaison [phone] if any additional questions.
[2022-11-07] VITALS (14 sets, daily range): BP systolic 98–148; BP diastolic 55–97; PULSE 52–74; RESP 14–34; TEMP 36.4–36.6; O2SAT 92–100; BMI 38.8
--- NOTE | ~2022-11-07 | XR_ITS ---
EXAMINATION: XR fluoroscopy no charge DATE: 11/07/2022 16:38 INDICATION: Lumbar foraminotomy TECHNIQUE: A single fluoroscopic imaging lateral projection of the lower lumbar spine was obtained du ring procedure performed by Dr. Mata. Radiologist was not present for the imaging or procedure. T he amount of fluoroscopy time used during this procedure was 0.1 minutes. COMPARISON: None. FINDINGS: Soft tissue retractors and likely lap sponge markers projecting over the soft tissues posterior to th e lumbosacral junction. The tip of a metallic probe projects of the posterior elements of L5. IMPRESSION: 1. Fluoroscopy utilized during neurosurgical procedure at the lower lumbar spine. See procedure note for further detail. Reviewed, dictated and finalized at location A. IMPRESSION: 1. Fluoroscopy utilized during neurosurgical procedure at the lower lumbar spin e. See procedure note for further detail.
--- NOTE | 2022-11-07 14:31 | PM.IMHP ---
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 He does not have specific muscle group weakness or dermatomal numbness in a consistent way. He is not having bowel or bladder difficulty. He has not changed appreciably since we last saw him. Review of Systems Review of Systems: Patient denies shortness of breath, cough, fever, chills, nausea, vomiting, weight loss, weight gain, chest pain, dysuria. His back and leg pain as above. His review of systems otherwise negative on 12 systems except as noted elsewhere. [facility] Past Medical History Medical History (Updated 10/28/22 @ 16:56 by Steve Baptiste DO) Asbestosis Carpal tunnel syndrome Chronic rhinitis COPD (chronic obstructive pulmonary disease) Essential hypertension Gastro-esophageal reflux disease without esophagitis Hepatitis C History of CVA (cerebrovascular accident) History of tobacco abuse Hx of hepatitis C Left lumbar radiculopathy DAGOBERTO (obstructive sleep apnea) Psoriatic arthritis Right sciatic nerve pain Surgical History Surgical History H/O arthroscopy of knee (~07/05/16) Partial Medial & Lateral Menisectomy History of repair of right rotator cuff (~08/22/20) Biceps Tenodesis History of uvulopalatopharyngoplasty Hx of cholecystectomy Family History Family History Mother Family history of cardiovascular disease Family history of congenital heart disease Asthma Family history of coronary artery disease Father Carcinoma of colon Family history of cardiovascular disease, Onset Age: 87 Malignant neoplasm of prostate Sibling Carcinoma of colon Family history of malignant neoplasm of breast in first degree relative Patient's sister is in good health Social History Social History Smoking packs per day: 1 Smoking cigarettes per day: 20.0 Years smoked: 15 Smoking pack-years: 15.00 Smoking status: Former smoker Tobacco type: cigarettes and smokeless tobacco Smokeless tobacco user: chewing tobacco Second hand tobacco smoke exposure: No Smoking end date: 03/17/78 Additional smoking assessment comments: HX OF CHEWING TOBACCO - CALVIN ALL TOBACCO USE NOW Alcohol intake: former Alcohol use details: QUIT 1980 Substance use: never Substance use type: does not use Lack of Transportation: No Lack of Food: Never True Current Housing: I Have Housing Concerned About Future Housing: No Difficulty Paying Gas/Electric Bills: No Difficulty Paying for Meds: No Currently Unemployed: No Education: Trade/Vocational Certificate Difficulty w/ Childcare or Family Care: No Living arrangements: with family Occupation/Education: retired Spiritual care concerns: No Meds Home Medications and Allergies Home Medications Medication Instructions Recorded Confirmed Type cetirizine 10 mg tablet (Zyrtec) 5 mg PO DAILY PRN allergy symptoms 07/05/19 10/28/22 Rx #30 tabs esomeprazole magnesium 20 mg 20 mg PO DAILY #90 caps 07/05/19 10/28/22 Rx capsule,delayed release (Nexium) psyllium husk 0.4 gram capsule 0.4 gm PO DAILY #30 caps 07/05/19 10/28/22 Rx (Metamucil) glucosamine-chondroitin 250 mg-200 1 tablet PO DAILY 06/12/20 10/28/22 History mg tablet (Osteo Bi-Flex) multivitamin 1 tablet PO DAILY 06/12/20 10/28/22 History guselkumab 100 mg/mL subcutaneous 100 mg subcut ONCE 11/29/21 10/28/22 History auto-injector (Tremfya) valsartan 80 mg tablet (Diovan) 80 mg PO DAILY #90 tabs 01/15/22 10/28/22 Rx rosuvastatin 10 mg tablet (Crestor) 10 mg PO .twice a week 06/27/22 10/28/22 History aspirin 81 mg tablet,delay
--- NOTE | 2022-11-07 14:32 | WPDHPUPDATE1 ---
History and Physical Update Update Date/Time: 11/07/22 14:32 History and Physical has been reviewed, including an updated exam of the patient. There are NO changes in the patient's condition. Risks, benefits, and alternatives have been discussed and questions answered. Patient agrees to proceed with procedure.
--- NOTE | 2022-11-07 14:36 | WPDANESEPPF ---
Anes - Initial Pre Proc Eval Procedure: Operation Date: 11/07/22 13:30 Proposed Procedures p Left L5-S1 Far Lateral Foraminotomy - Saman Mata MD Date/Time: 11/07/22 14:36 Surgeon: Saman Mata MD Pre Op Diagnosis: spinal stenosis Patient Data Age: 77 Gender: M Height: 1.7 m Weight: 112.6 kg Last Vital Signs Temp 36.6 C 11/07/22 12:23 Pulse 74 11/07/22 12:23 Resp 14 11/07/22 12:23 BP 131/97 H 11/07/22 12:23 Pulse Ox 93 11/07/22 12:23 O2 Del Method Room Air 11/07/22 12:23 Allergies Allergy/AdvReac Type Severity Reaction Status Date / Time Iodinated Contrast Media Allergy Mild Other Verified 10/28/22 15:16 Penicillins Allergy Unknown unknown- Verified 10/28/22 15:16 A CHILD shellfish derived Allergy Unknown Swelling Verified 10/28/22 15:16 of Lip/Tongue/Throat Lobster Allergy Unknown THROAT Uncoded 10/28/22 15:16 SWELLS Home Medications Medication Instructions Recorded Confirmed Type cetirizine 10 mg tablet (Zyrtec) 5 mg PO DAILY PRN allergy symptoms 07/05/19 10/28/22 Rx #30 tabs esomeprazole magnesium 20 mg 20 mg PO DAILY #90 caps 07/05/19 10/28/22 Rx capsule,delayed release (Nexium) psyllium husk 0.4 gram capsule 0.4 gm PO DAILY #30 caps 07/05/19 10/28/22 Rx (Metamucil) glucosamine-chondroitin 250 mg-200 1 tablet PO DAILY 06/12/20 10/28/22 History mg tablet (Osteo Bi-Flex) multivitamin 1 tablet PO DAILY 06/12/20 10/28/22 History guselkumab 100 mg/mL subcutaneous 100 mg subcut ONCE 11/29/21 10/28/22 History auto-injector (Tremfya) valsartan 80 mg tablet (Diovan) 80 mg PO DAILY #90 tabs 01/15/22 10/28/22 Rx rosuvastatin 10 mg tablet (Crestor) 10 mg PO .twice a week 06/27/22 10/28/22 History aspirin 81 mg tablet,delayed 81 mg PO DAILY #1 tablet 07/23/22 10/28/22 Rx release amlodipine 10 mg tablet 10 mg PO QAM #90 tabs 09/18/22 10/28/22 Rx albuterol sulfate 90 mcg/actuation 2 puff inhalation Q4H 10/21/22 10/28/22 History aerosol inhaler clopidogrel 75 mg tablet (Plavix) 75 mg PO DAILY #30 tabs 11/02/22 Rx Patient hx anesthesia problems: none Family hx anesthesia problems: none Results Review: All pre-operative results and documents have been reviewed as part of the pre-operative evaluation. [facility] Past Medical History Medical History Asbestosis Carpal tunnel syndrome Chronic rhinitis COPD (chronic obstructive pulmonary disease) Essential hypertension Gastro-esophageal reflux disease without esophagitis Hepatitis C History of CVA (cerebrovascular accident) History of tobacco abuse Hx of hepatitis C Left lumbar radiculopathy DAGOBERTO (obstructive sleep apnea) Psoriatic arthritis Right sciatic nerve pain Surgical History Surgical History H/O arthroscopy of knee (~07/05/16) Partial Medial & Lateral Menisectomy History of repair of right rotator cuff (~08/22/20) Biceps Tenodesis History of uvulopalatopharyngoplasty Hx of cholecystectomy Family History Family History Mother Family history of cardiovascular disease Family history of congenital heart disease Asthma Family history of coronary artery disease Father Carcinoma of colon Family history of cardiovascular disease, Onset Age: 87 Malignant neoplasm of prostate Sibling Carcinoma of colon Family history of malignant neoplasm of breast in first degree relative Patient's sister is in good health Social History Social History Smoking packs per day: 1 Smoking cigarettes per day: 20.0 Years smoked: 15 Smoking pack-years: 15.00 Smoking status: Former smoker Tobacco type: cigarettes and smokeless tobacco Smokeless tobacco user: chewing tobacco Second hand tobacco smoke exposure: No Smoking end date: 03/17/78 Additional
[2022-11-07] MEDS: LACTATED RINGERS 1,000 ML 30 ML IV CONT ×2 (15:08→17:23)
[2022-11-07] MEDS: ceFAZolin 2 GM/D5W 50 ML 2 GM/50 ML BAG IVPB (15:10)
[2022-11-07] MEDS: LIDO 1%/EPINEPHRINE 1:100,000 50 ML VIAL 10 ML INFILTRATE (15:31)
[2022-11-07] MEDS: fentaNYL CITRATE INJ (*CRX) 100 MCG/2 ML VIAL 25 MCG IV PUSH ×4 (17:06→17:34)
[2022-11-07] MEDS: ALBUTEROL SULFATE (*SP) AEROSOL 1 PUFF 2 PUFF INHALATION ×2 (17:06→20:40)
[2022-11-07] MEDS: ONDANSETRON INJ 4 MG/2 ML VIAL IV PUSH ×2 (17:40→21:51)
--- NOTE | 2022-11-07 18:00 | ADMGEN ---
This patient, Parker Tyson, was admitted to Medical Room 348-. Patient/family oriented to hospital policies and general routines including ID bracelet, bed and alarms, visiting hours, pain management, procedures, bathroom and other care routines, personal items, smoking policy, room service/diet, and visiting hours. Information on how to activate the Rapid Response Team has been discussed. Patient/Family are encouraged to report perceived risks to care and to ask questions if they do not understand what they are told or what they should do.
[2022-11-07] MEDS: KCL 20 MEQ/D5/0.45% SOD CHL 1,000 ML 100 ML IV CONT (18:33)
[2022-11-07] MEDS: NONFORMULARY NUTRITIONAL SUPPLEMENT 1 EACH XX (18:36)
[2022-11-07] MEDS: WATER FOR IRRIGATION, STERILE 1,000 ML BOTTLE 1000 ML (18:38)
[2022-11-07] MEDS: MORPHINE SULFATE (*CRX) 2 MG/ML INJ IV PUSH (18:43)
[2022-11-07] MEDS: METOCLOPRAMIDE HCL INJ 10 MG/2 ML VIAL 5 MG IV PUSH (20:07)
[2022-11-08 00:43] VITALS: BP 131/75; PULSE 59; RESP 16; TEMP 36; O2SAT 98
[2022-11-08 02:03] VITALS: PULSE 61; RESP 19; O2SAT 94
--- NOTE | 2022-11-08 02:05 | PCRCNOTE ---
Patient refused his 0000 mdi and his 0400 inhaler due to not taking it that frequent at home. He states he only uses it in the morning, then PRN throughout the day. Treatment to resume at 0800.
[2022-11-08] MEDS: HYDROcodone/acetaminophen (*CRX) 10-325 MG TABLET 1 TAB PO ×2 (03:07→07:02)
[2022-11-08] MEDS: KCL 20 MEQ/D5/0.45% SOD CHL 1,000 ML 100 ML IV CONT (03:07)
[2022-11-08 04:53] VITALS: BP 141/66; PULSE 55; RESP 16; TEMP 36.3; O2SAT 98
[2022-11-08 08:00] VITALS: O2SAT 99
[2022-11-08] MEDS: ROSUVASTATIN 10 MG TABLET PO (08:30)
[2022-11-08] MEDS: PSYLLIUM SUGAR FREE POWDER PACKET 1 PACKET PO (08:35)
[2022-11-08] MEDS: ONDANSETRON INJ 4 MG/2 ML VIAL IV PUSH (08:35)
[2022-11-08] MEDS: MULTIVITAMINS THERAPEUTIC TAB (*BKC) 1 TABLET PO (08:35)
[2022-11-08] MEDS: amLODIPine BESYLATE 5 MG TABLET 10 MG PO (08:36)
[2022-11-08] MEDS: DOCUSATE SODIUM 100 MG CAPSULE PO (08:36)
[2022-11-08] MEDS: VALSARTAN 80 MG TABLET PO (08:36)
[2022-11-08] MEDS: PANTOPRAZOLE 40 MG TABLET PO (08:36)
[2022-11-08 08:53] VITALS: BP 122/50; PULSE 57; RESP 14; TEMP 36.3; O2SAT 100
--- NOTE | 2022-11-08 09:31 | PCPTNOTE ---
Attempted PT evaluation, pt refused due to wanting his present prior to evaluation. Will follow.
[2022-11-08] MEDS: ALBUTEROL SULFATE (*SP) AEROSOL 1 PUFF 2 PUFF INHALATION (12:56)
--- NOTE | 2022-12-02 16:00 | P.OP_ITS ---
Procedure Note - Detailed Date of Procedure 11/07/22 Pre-op Diagnosis spinal stenosis Post-op Diagnosis Same Procedure Performed Left L5-S1 far lateral foraminotomy Surgeon Saman Mata MD Anesthesia General Description of Procedure the patient was brought to the operating room in the supine position, was sedated, intubated and placed under general anesthesia in routine fashion. He was then turned into the prone position on a Tyrone frame. The operation was back was examined, marked for incision, prepped and draped in routine sterile fashion. Incision was marked over the L5 and S1 spinous processes in the midline. This area was injected with 0.5% lidocaine with [id number] epinephrine. Intravenous antibiotics given prior to incision. Incision was made with a 10 blade scalpel down to the lumbodorsal fascia. A subperiosteal dissection of the muscle soft tissue away from spinous process and lamina on the left at L5-S1 was performed with a subperiosteal elevator and Bovie cautery. A verifying x-rays obtained to verify the level of operation. On the left at L5-S1 Midas-Chalo drill was used to resect the lateral pars and facet to the soft contents the foramen were encountered. Under microscopy the yellow ligament was lifted and removed piecemeal using Kerrison punches. The nerve root was reflected superiorly. Any soft or hard material from beneath the nerve was pushed out with an Maira curette removed from the wound with a Minor rongeur. These maneuvers were performed to a nerve hook could be placed proximally distally to confirm microdecompression. The wound was then copiously irrigated with bacitracin irrigation all bleeding stopped with bipolar Bovie cautery and Gelfoam thrombin powder. The wound was then closed in layered fashion with 2-0 Vicryl interrupted sutures in the lumbodorsal fascia and Azra's layer. 3-0 Vicryl buried interrupted sutures were placed in the dermis and the skin was closed with a running 4-0 Monocryl subcuticular stitch and dressed with Dermabond. The patient was allowed wake up in the operating room and was taken to the [facility] room in stable condition. There were no immediate complications of this operation. All counts were reported correct in the case. Blood loss was 25 cc. The patient was neurologically at his baseline postoperatively. CPT codes: 23433 Estimated Blood Loss 25 IV Fluids 1,000 Urine Output 1,000 Complications None Condition Stable Disposition PACU [facility] Billing Surgery - Charge Forward: Surgery Billing
== END 2022-11-08 13:30 | disposition home or self-care (01) ==
LOC: ANHSURGERY 11:11 → ANH3MED 17:57
PROVIDERS: PCP Internal Medicine; Visit Provider Neurological Surgery
PROC: (CPT 63005; principal; 2022-11-07 13:30)
DX: M48.061 Spinal stenosis, lumbar region without neurogenic claudication (principal); J44.9 Chronic obstructive pulmonary disease, unspecified; I10 Essential (primary) hypertension; K21.9 Gastro-esophageal reflux disease without esophagitis; G47.33 Obstructive sleep apnea (adult) (pediatric); L40.50 Arthropathic psoriasis, unspecified; Z86.73 Personal history of transient ischemic attack (TIA), and cerebral infarction without residual deficits; Z86.19 Personal history of other infectious and parasitic diseases; Z87.891 Personal history of nicotine dependence; Z79.620 Long term (current) use of immunosuppressive biologic; Z79.51 Long term (current) use of inhaled steroids; Z79.02 Long term (current) use of antithrombotics/antiplatelets; Z79.82 Long term (current) use of aspirin
CPT/HCPCS: 63056; 94640; 97161; 97165; 97530; 97535; 99199; A9270; J0690; J1100; J2270; J2405; J2704; J2765; J3010; J3480; J7120

== ENCOUNTER 2023-07-29 11:35 | Outpatient (CLI) | payer MEDICARE, OTHER, SELFPAY ==
[2023-07-29 18:41] LABS: Basophils Absolute Auto 0.1 K/mm3 (0.0-0.1); Basophils Percent Auto 0.7 % (0.2-1.2); Eosinophils Absolute Auto 0.2 K/mm3 (0-0.3); Eosinophils Percent Auto 2.6 % (0-4.4); Hemoglobin 13.5 g/dL (14.0-18.0); Immature Granulocyte Absolute 0.02 K/mm3 (0.00-0.031); Immature Granulocyte Percent A 0.3 % (0-0.5); Lymphocytes Absolute Auto 1.56 K/mm3 (0.9-3.2); Lymphocytes Percent Auto 22.9 % (18.3-44.2); Mean Corpuscular HGB Conc 31.4 g/dl (32-36); Mean Corpuscular Hemoglobin 27.7 pg (26-34); Mean Corpuscular Volume 88.1 fl (80-100); Monocytes Absolute Auto 0.8 K/mm3 (0.1-0.6); Monocytes Percent Auto 11.2 % (2.6-8.5); Neutrophils Absolute Auto 4.2 K/mm3 (1.3-6.7); Neutrophils Percent Auto 62.3 % (45.5-73.1); Platelet Count Result 178 k/mm3 (150-375); Red Blood Count 4.88 M/mm3 (4.6-6.20); White Blood Count 6.8 K/mm3 (4.5-10.0)
[2023-07-29 19:38] LABS: Alanine Aminotransferase 17 U/L (6-50); Albumin Level 4.1 g/dL (3.5-5.1); Alkaline Phosphatase 62 U/L (38-126); Anion Gap 7 mmol/L (4-12); Aspartate Amino Transferase 27 U/L (17-59); Bilirubin,Total 0.4 mg/dL (0.2-1.3); Blood Urea Nitrogen 18 mg/dL (9-20); Calcium 9.5 mg/dL (8.4-10.2); Carbon Dioxide 27 mmol/L (22-30); Chloride 104 mmol/L (98-107); Estimated Glomerular Filt Rate > 60; Glucose 81 mg/dL (65-110); Potassium 4.4 mmol/L (3.4-5.0); Sodium 138 mmol/L (137-145)
[2023-07-29 20:04] LABS: Prostate Specific Antigen 2.8 ng/mL (< OR = 4.0)
== END 2023-07-29 11:36 | disposition home or self-care (01) ==
PROVIDERS: PCP Internal Medicine; Visit Provider Internal Medicine
DX: I10 Essential (primary) hypertension (principal); J61 Pneumoconiosis due to asbestos and other mineral fibers; R97.20 Elevated prostate specific antigen [PSA]; Z86.19 Personal history of other infectious and parasitic diseases
CPT/HCPCS: 36415; 80053; 84153; 85025

== ENCOUNTER 2023-09-08 10:20 | Outpatient (CLI) | payer MEDICARE, OTHER, SELFPAY ==
--- NOTE | ~2023-09-08 | XR_ITS ---
EXAMINATION: XR chest 2V DATE: 09/08/2023 10:30 INDICATION: Cough. TECHNIQUE: Frontal and lateral views of the chest were obtained. COMPARISON: Chest CT 12/13/2021 FINDINGS: There are calcified pleural plaques bilaterally. There is mild atelectasis versus scarring at the lung bases. No pleural effusion or pneumothorax. The heart size is normal. IMPRESSION: 1. Mild atelectasis versus scarring at the lung bases. 2. Calcified pleural plaques, which may be seen with asbestos exposure. Reviewed, dictated and finalized at location A.
== END 2023-09-08 10:21 ==
PROVIDERS: PCP Orthopaedic Surgery; Visit Provider Clinical Nurse Specialist
DX: R05.9 Cough, unspecified (principal); T17.908A Unspecified foreign body in respiratory tract, part unspecified causing other injury, initial encounter; R91.8 Other nonspecific abnormal finding of lung field
CPT/HCPCS: 71046

== ENCOUNTER 2023-09-12 00:38 | Day surgery (SDC) | payer MEDICARE, OTHER, SELFPAY ==
[2023-09-09 10:24] VITALS: BMI 31.8
[2023-09-12 10:52] VITALS: BP 118/65; PULSE 61; RESP 18; TEMP 36.3; O2SAT 97
[2023-09-12] MEDS: LACTATED RINGERS 1,000 ML 150 ML IV CONT (11:11)
--- NOTE | 2023-09-12 11:18 | WPDANESEPPF ---
Anes - Initial Pre Proc Eval Procedure: Operation Date: 09/12/23 12:30 Proposed Procedures p Esophagogastroduodenoscopy - Dung Rashid MD Date/Time: 09/12/23 11:18 Surgeon: Dung Rashid MD Pre Op Diagnosis: Dysphagia Patient Data Age: 78 Gender: M Height: 1.7 m Weight: 90.6 kg Last Vital Signs Temp 97.4 F L 09/12/23 10:52 Pulse 61 09/12/23 10:52 Resp 18 09/12/23 10:52 BP 118/65 09/12/23 10:52 Pulse Ox 97 09/12/23 10:52 O2 Del Method Room Air 09/12/23 10:52 Allergies Allergy/AdvReac Type Severity Reaction Status Date / Time shellfish derived Allergy Severe Swelling Verified 09/12/23 10:51 of Lip/Tongue/Throat Iodinated Contrast Media Allergy Mild Other Verified 09/12/23 10:51 Penicillins Allergy Unknown unknown- Verified 09/12/23 10:51 A CHILD Lobster Allergy Unknown THROAT Uncoded 09/09/23 10:29 SWELLS Home Medications Medication Instructions Recorded Confirmed Type esomeprazole magnesium 20 mg 20 mg PO DAILY #90 caps 07/05/19 09/09/23 Rx capsule,delayed release (Nexium) psyllium husk 0.4 gram capsule 0.4 gm PO DAILY #30 caps 07/05/19 09/09/23 Rx (Metamucil) glucosamine-chondroitin 250 mg-200 1 tablet PO DAILY 06/12/20 09/09/23 History mg tablet (Osteo Bi-Flex) multivitamin 1 tablet PO DAILY 06/12/20 09/09/23 History albuterol sulfate 90 mcg/actuation 2 puff inhalation Q4H PRN 10/21/22 09/09/23 History aerosol inhaler Shortness Of Breath Or Wheezing aspirin 81 mg chewable tablet 81 mg PO DAILY 12/24/22 09/09/23 History (Wisam Chewable Low Dose Aspirin) amlodipine 10 mg tablet 10 mg PO QAM #90 tabs 07/29/23 09/09/23 Rx valsartan 80 mg tablet (Diovan) 80 mg PO DAILY #90 tabs 07/29/23 09/09/23 Rx cetirizine 10 mg tablet (Zyrtec) 5 mg PO DAILY allergy symptoms 09/09/23 09/09/23 History Patient hx anesthesia problems: none Family hx anesthesia problems: none Results Review: All pre-operative results and documents have been reviewed as part of the pre-operative evaluation. [facility] Past Medical History Medical History Asbestosis Aspiration into airway Carpal tunnel syndrome Chronic lumbar pain Chronic rhinitis COPD (chronic obstructive pulmonary disease) Essential hypertension Gastro-esophageal reflux disease without esophagitis Hepatitis C History of CVA (cerebrovascular accident) History of tobacco abuse Hx of hepatitis C Left lumbar radiculopathy DAGOBERTO (obstructive sleep apnea) Psoriatic arthritis Right sciatic nerve pain Surgical History Surgical History H/O arthroscopy of knee (~07/05/16) Partial Medial & Lateral Menisectomy History of back surgery History of repair of right rotator cuff (~08/22/20) Biceps Tenodesis History of uvulopalatopharyngoplasty Hx of cholecystectomy Family History Family History Mother Family history of cardiovascular disease Family history of congenital heart disease Asthma Family history of coronary artery disease Father Carcinoma of colon Family history of cardiovascular disease, Onset Age: 87 Malignant neoplasm of prostate Sibling Carcinoma of colon Family history of malignant neoplasm of breast in first degree relative Patient's sister is in good health Social History Social History Smoking packs per day: 1 Smoking cigarettes per day: 20.0 Years smoked: 15 Smoking pack-years: 15.00 Smoking status: Former smoker Tobacco type: cigarettes Smokeless tobacco user: chewing tobacco Second hand tobacco smoke exposure: No Additional smoking assessment comments: HX OF CHEWING TOBACCO - CALVIN ALL TOBACCO USE NOW Alcohol intake: current Alcohol use details: QUIT 1980 Substance use: former Substan
--- NOTE | 2023-09-12 11:21 | PM.HPGS ---
History of Present Illness History of Present Illness Consent: Risks, benefits, and alternatives have been discussed and questions answered. Patient agrees to proceed with procedure. Chief complaint: Dysphagia Narrative: Parker Tyson is a 78 year old male here for egd, sometimes choking after eating, he had stroke about 2 years ago, previous EGD but did not require dilation. Review of Systems Review of Systems: All systems reviewed & are unremarkable except as noted in HPI and below PMFSH Past Medical History Medical History (Updated 09/12/23 @ 11:23 by Dung Rashid MD) Asbestosis Aspiration into airway Carpal tunnel syndrome Choking Chronic lumbar pain Chronic rhinitis COPD (chronic obstructive pulmonary disease) Essential hypertension Gastro-esophageal reflux disease without esophagitis Hepatitis C History of CVA (cerebrovascular accident) History of tobacco abuse Hx of hepatitis C Left lumbar radiculopathy DAGOBERTO (obstructive sleep apnea) Psoriatic arthritis Right sciatic nerve pain Surgical History Surgical History H/O arthroscopy of knee (~07/05/16) Partial Medial & Lateral Menisectomy History of back surgery History of repair of right rotator cuff (~08/22/20) Biceps Tenodesis History of uvulopalatopharyngoplasty Hx of cholecystectomy Family History Family History Mother Family history of cardiovascular disease Family history of congenital heart disease Asthma Family history of coronary artery disease Father Carcinoma of colon Family history of cardiovascular disease, Onset Age: 87 Malignant neoplasm of prostate Sibling Carcinoma of colon Family history of malignant neoplasm of breast in first degree relative Patient's sister is in good health Social History Social History Smoking packs per day: 1 Smoking cigarettes per day: 20.0 Years smoked: 15 Smoking pack-years: 15.00 Smoking status: Former smoker Tobacco type: cigarettes Smokeless tobacco user: chewing tobacco Second hand tobacco smoke exposure: No Additional smoking assessment comments: HX OF CHEWING TOBACCO - CALVIN ALL TOBACCO USE NOW Alcohol intake: current Alcohol use details: QUIT 1980 Substance use: former Substance use type: does not use Do You Feel Safe in your Home?: Yes Lack of Transportation: No Lack of Food: Never True Current Housing: I Have Housing Concerned About Future Housing: No Difficulty Paying Gas/Electric Bills: No Difficulty Paying for Meds: No Currently Unemployed: No Education: Trade/Vocational Certificate Difficulty w/ Childcare or Family Care: No Living arrangements: with family Occupation/Education: retired Spiritual care concerns: No Meds Home Medications and Allergies Home Medications Medication Instructions Recorded Confirmed Type esomeprazole magnesium 20 mg 20 mg PO DAILY #90 caps 07/05/19 09/09/23 Rx capsule,delayed release (Nexium) psyllium husk 0.4 gram capsule 0.4 gm PO DAILY #30 caps 07/05/19 09/09/23 Rx (Metamucil) glucosamine-chondroitin 250 mg-200 1 tablet PO DAILY 06/12/20 09/09/23 History mg tablet (Osteo Bi-Flex) multivitamin 1 tablet PO DAILY 06/12/20 09/09/23 History albuterol sulfate 90 mcg/actuation 2 puff inhalation Q4H PRN 10/21/22 09/09/23 History aerosol inhaler Shortness Of Breath Or Wheezing aspirin 81 mg chewable tablet 81 mg PO DAILY 12/24/22 09/09/23 History (Wisam Chewable Low Dose Aspirin) amlodipine 10 mg tablet 10 mg PO QAM #90 tabs 07/29/23 09/09/23 Rx valsartan 80 mg tablet (Diovan) 80 mg PO DAILY #90 tabs 07/29/23 09/09/23 Rx cetirizine 10 mg tablet (Zyrtec) 5 mg PO DAILY allergy symptoms 09/09/23 09/09/23 History Allergies Allergy/AdvReac Type Severity Reaction Status Date / Time reading hospital
[2023-09-12 11:28] VITALS: BP 129/69; PULSE 62; RESP 20; O2SAT 92
[2023-09-12 11:38] VITALS: BP 106/66; PULSE 59; RESP 16; O2SAT 94
[2023-09-12 11:48] VITALS: BP 119/68; PULSE 59; RESP 19; O2SAT 100
== END 2023-09-12 12:00 | disposition home health service (06) ==
PROVIDERS: PCP Clinical Nurse Specialist; Visit Provider Internal Medicine Gastroenterology
PROC: 0DJ08ZZ Inspection of Upper Intestinal Tract, Via Natural or Artificial Opening Endoscopic (ICD-10-PCS; CPT 43235; principal; 2023-09-12 12:30)
DX: R13.10 Dysphagia, unspecified (principal); T17.308A Unspecified foreign body in larynx causing other injury, initial encounter; I10 Essential (primary) hypertension; K21.9 Gastro-esophageal reflux disease without esophagitis; J44.9 Chronic obstructive pulmonary disease, unspecified; Z86.19 Personal history of other infectious and parasitic diseases; G47.33 Obstructive sleep apnea (adult) (pediatric); Z87.891 Personal history of nicotine dependence
CPT/HCPCS: 43235; J2704; J7120

== ENCOUNTER 2023-09-22 14:04 | Outpatient (CLI) | payer MEDICARE, OTHER, SELFPAY ==
--- NOTE | ~2023-09-22 | XR_ITS ---
EXAMINATION: XR thoracic spine 3V DATE: 09/22/2023 14:36 INDICATION: Pain in thoracic spine. TECHNIQUE: 5 views of thoracic spine were obtained. COMPARISON: None. FINDINGS: Bone alignment is normal. Vertebral body heights are normal. There is mildly decreased disc height at multiple levels in mid thoracic spine. There are endplate osteophytes at most levels. Surg ical clips in the right upper quadrant are likely from cholecystectomy. IMPRESSION: 1. Mild thoracic spondylosis. Reviewed, dictated and finalized at location E.
--- NOTE | ~2023-09-22 | XR_ITS ---
EXAMINATION: XR sacroiliac joints min 3V DATE: 09/22/2023 14:36 INDICATION: Sacroiliitis, not elsewhere classified. TECHNIQUE: 3 views of the sacroiliac joints were obtained. COMPARISON: Pelvis radiograph 08/15/2022 FINDINGS: Alignment is normal. No fracture. There is mild left sacroiliac joint osteoarthritis. Right sacroiliac joint is normal. No evidence of inflammatory arthropathy. IMPRESSION: 1. Mild left sacroiliac joint osteoarthritis. Reviewed, dictated and finalized at location E.
== END 2023-09-22 14:05 | disposition home or self-care (01) ==
LOC: ANHIMG 14:10
PROVIDERS: PCP Internal Medicine; Visit Provider Anesthesiology Pain Medicine
DX: M46.1 Sacroiliitis, not elsewhere classified (principal); M43.04 Spondylolysis, thoracic region; G89.29 Other chronic pain
CPT/HCPCS: 72072; 72202

== ENCOUNTER 2023-09-30 13:24 | Outpatient (CLI) | payer MEDICARE, OTHER, SELFPAY ==
--- NOTE | ~2023-09-30 | MR_ITS ---
MRI of the thoracic spine Clinical History: Pain Technique: Axial T2-weighted and gradient images, and sagittal T1-weighted, T2-weighted, and STIR jona ges were acquired. Findings: There is no fracture or subluxation of the thoracic spine. Vertebral bodies maintain normal height and alignment. Several intraosseous hemangiomas are present at the lower thoracic spine, but no suspicious bone marrow signal abnormality seen. No significant disc bulge or herniation seen at any thoracic level. No spinal canal stenosis or cord compression identified in the thoracic spine. There is mild facet arthropathy the lower thoracic spin e. Neural foramina are preserved. No abnormal signal seen in the spinal cord. No epidural mass or collection seen. Paravertebral soft t issues are unremarkable. Impression: No significant abnormality seen. Reviewed, dictated and finalized at [facility]. Impression: No significant abnormality seen.
== END 2023-09-30 13:25 | disposition home or self-care (01) ==
PROVIDERS: PCP Internal Medicine; Visit Provider Anesthesiology Pain Medicine
DX: M54.14 Radiculopathy, thoracic region (principal)
CPT/HCPCS: 72146

== ENCOUNTER 2023-10-21 09:13 | Day surgery (SDC) | payer MEDICARE, OTHER, SELFPAY ==
[2023-10-09 08:57] VITALS: BMI 31.4
--- NOTE | ~2023-10-21 | XR_ITS ---
EXAMINATION: XR fluoroscopy no charge DATE: 10/21/2023 11:00 CDT INDICATION: CM SI JT INJ . TECHNIQUE: 7 fluoroscopic images and 2 cine clips of the SI joints were obtained during bilateral SI joint injections, performed by Andrés Corona MD. I was not present during the procedure. Fluorosco py exposure time was 12.4 seconds. Air Kerma 5.01 mGy. COMPARISON: None FINDINGS/IMPRESSION: Fluoroscopic documentation of bilateral SI joint injections. Please refer to the operative note for c omplete procedural details . Reviewed, dictated and finalized at location K.
[2023-10-21 09:43] VITALS: BP 111/95; PULSE 63; RESP 20; TEMP 36.5; O2SAT 96; BMI 31.8
--- NOTE | 2023-10-21 10:24 | WPDHPUPDATE1 ---
History and Physical Update Update Date/Time: 10/21/23 10:24 History and Physical has been reviewed, including an updated exam of the patient. There are NO changes in the patient's condition. Risks, benefits, and alternatives have been discussed and questions answered. Patient agrees to proceed with procedure.
--- NOTE | 2023-10-21 10:25 | W.PM.PROC2 ---
Procedure Note - Detailed Date of Procedure 10/21/23 Pre-op Diagnosis Sacroiliitis, chronic low back pain Post-op Diagnosis Same Procedure Performed bilateral Sacroiliac Joint Steroid Injection under Fluoroscopic Guidance and with Contrast Control. Surgeon Andrés Corona MD Anesthesia Local Description of Procedure INFORMED CONSENT: Risks, benefits and alternatives to the procedure were discussed in detail with the patient who expressed explicit understanding and consent to proceed. Patient was informed verbally and in written form regarding the risks associated with the procedure including the low risk of serious infection, bleeding/bruising, allergic reaction, nerve or organ injury, paralysis, procedural site pain or discomfort, worsening pain and/or mobility, failure to treat and/or disfigurement. The patient expressed explicit understanding and consent to proceed. All materials required for the procedure were available prior to procedure start. Site and side were marked prior to procedure and confirmed in the presence of the patient. PROCEDURE IN DETAIL: The patient was brought to the procedural suite and placed in the prone position. Patient was made comfortable with use of pillows under the head/chest, hips and ankles. Skin overlying the injection site on the affected side(s) was prepared broadly with ChloraPrep applicator and draped in a sterile manner. Aseptic technique was used throughout. The SI joint was identified in the AP view and contralateral oblique angulation with caudal tilt was utilized to optimize visualization of the inferior and medial joint line representing the posterior portion of the joint. Local anesthesia was established by infiltration with approximately 5 mL of 2% lidocaine via a 1-1/2 inch 27-gauge needle. A 22-gauge 3.5 inch Quincke spinal needle was advanced until the needle entered the inferior third of the joint space approximately 1cm cephalad from its most inferior point. In the AP view, 0.5 mL of Dotarem contrast medium was injected after negative aspiration for CSF, blood or other bodily fluid, showing appropriate intra-articular spread of contrast without evidence of intravascular, perineural or intrathecal placement. A 1.5 mL solution containing 3 mg of betamethasone in 0.5% PF bupivacaine was injected after repeat negative aspiration. Appropriate spread of the injectate was confirmed with washout of previous injected contrast. No parasthesias were elicited. Needle was removed completely intact without difficulty. The same exact procedure was repeated for all remaining levels on the contralateral side, left SI joint, modified as necessary to accommodate for the new target location with identical findings/results and no evidence of complication. Images were saved and documented in the patient chart. Patient's skin was cleansed and sterile bandage applied. The patient tolerated the procedure well. The patient was transported to the recovery area in stable condition where they were observed for an appropriate amount of time prior to discharge, without evidence of complication. The patient was instructed to avoid excessive activity for the next 48 hours, including climbing and frequent use of stairs. Showers only for 48 hours. They were instructed not to drive or operate heavy machinery for 24 hours. They are to monitor for severe headaches, fevers, chills, night sweats, erythema/swelling at the site or any other signs of infection, bleeding/bruising, bowel or bladder changes as well as new pain, weakness or numbness in the upper or lower extremity. Should they notice these changes, they are instructed to call our office immediately or report directly to the nearest Emergency Department if no answer or if after posted office hours. COMPLICATIONS: None COMMENTS: None CONTRAST WASTED: 19mL Dotarem. Complications No immediate complications Condition Stable Disposition Same day [facility] Billing Surgery - Charge Fo
[2023-10-21] MEDS: LIDOCAINE HCL 1% PF INJ 5 ML VIAL 2.5 ML INFILTRATE (11:07)
[2023-10-21 11:09] VITALS: BP 204/99; PULSE 77; RESP 20; O2SAT 98
[2023-10-21] MEDS: BETAMETHASONE SODIUM PHOSPHATE PF INJ 6 MG/ML VIAL INFILTRATE (11:11)
[2023-10-21] MEDS: BUPivacaine HCL 0.5% 10 ML AMP 2 ML INFILTRATE (11:11)
[2023-10-21 11:18] VITALS: BP 119/79; PULSE 62; RESP 20; O2SAT 97
== END 2023-10-21 11:30 | disposition home or self-care (01) ==
PROVIDERS: PCP Internal Medicine; Visit Provider Anesthesiology Pain Medicine
PROC: (CPT G0260; principal; 2023-10-21 10:15)
DX: M46.1 Sacroiliitis, not elsewhere classified (principal); M54.59 Other low back pain
CPT/HCPCS: G0260 ×2; 27096; 99199

== ENCOUNTER 2023-12-16 10:21 | Day surgery (SDC) | payer MEDICARE, OTHER, SELFPAY ==
[2023-12-08 09:01] VITALS: BMI 31.4
--- NOTE | ~2023-12-16 | XR_ITS ---
EXAMINATION: XR fluoroscopy no charge DATE: 12/16/2023 11:20 CDT INDICATION: LEFT L5-S1, S1-S2 TRANSFORAMINAL STEROID INJ . TECHNIQUE: 6 fluoroscopic images and 12 cine clips of the lumbosacral spine were obtained during left L5-S1 and S1-S2 transforaminal steroid injection, performed by Andrés Corona MD. I was not presen t during the procedure. Fluoroscopy exposure time was 51.5 seconds. Air Kerma 23.32 mGy. COMPARISON: None FINDINGS/IMPRESSION: Fluoroscopic documentation of left L5-S1 and S1-S2 transforaminal steroid injection. Please refer to the operative note for complete procedural details . Reviewed, dictated and finalized at location K.
--- NOTE | 2023-12-16 06:09 | WPDHPUPDATE1 ---
History and Physical Update Update Date/Time: 12/16/23 06:09 History and Physical has been reviewed, including an updated exam of the patient. There are NO changes in the patient's condition. Risks, benefits, and alternatives have been discussed and questions answered. Patient agrees to proceed with procedure.
--- NOTE | 2023-12-16 06:10 | W.PM.PROC2 ---
Procedure Note - Detailed Date of Procedure 12/16/23 Pre-op Diagnosis lumbosacral radiculopathy, lumbar spinal stenosis Post-op Diagnosis Same Procedure Performed left lumbosacral Transforaminal Epidural Steroid Injection under Fluoroscopic Guidance and with Contrast Control at L5-S1, S1-S2. Surgeon Andrés Corona MD Anesthesia Local Description of Procedure INFORMED CONSENT: Risks, benefits and alternatives to the procedure were discussed in detail with the patient who expressed explicit understanding and consent to proceed. Patient was informed verbally and in written form regarding the risks associated with the procedure including the low risk of serious infection, bleeding/bruising, allergic reaction, nerve or organ injury, paralysis, procedural site pain or discomfort, worsening pain and/or mobility, failure to treat and/or disfigurement. The patient expressed explicit understanding and consent to proceed. All materials required for the procedure were available prior to procedure start. Site and side was marked prior to procedure and confirmed in the presence of the patient. PROCEDURE IN DETAIL: The patient was brought to the procedural suite and placed in the prone position. Patient was made comfortable with use of pillows under the head/chest, hips and ankles. Skin overlying the injection site was prepared broadly with ChloraPrep applicator and draped in a sterile manner. Aseptic technique was employed throughout. The endplates of the vertebral body at the site of interest were aligned in the AP view. Ipsilateral oblique angulation was utilized to better visualize the neuroforamen of interest. Local anesthesia was established by infiltration with approximately 5 mL of 0.5% PF lidocaine via a 1-1/2 inch 27-gauge needle. A 22-gauge 5.0 inch Franco (pencil point) spinal needle was advanced until the needle approached the 6 o'clock position on the pedicle just superior to the exiting nerve root. on the left at L5-S1. Lateral view was utilized to confirm appropriate position of the needle tip within the superior and posterior portion of the respective foramen. In an AP view, 1 mL of Omnipaque 300 contrast medium was injected after negative aspiration for CSF, blood or other bodily fluid, showing appropriate neurogram without evidence of intravascular or intrathecal spread of contrast. Digital subtraction imaging was used with an additional 1ml of the same contrast medium to confirm absence of intravascular contrast spread. A 1mL solution containing 3 mg of betamethasone was injected after negative repeat aspiration. Appropriate spread of the injectate was confirmed with washout of previously injected contrast. No parasthesias were elicited. Needle was removed completely intact without difficulty. The same exact procedure was repeated for all remaining levels on the ipsilateral side, left S1-S2 posterior neural foramen, modified as necessary to accommodate for the new target location with identical findings and results and no evidence of complication. Images were saved and documented in the patient chart. Patient's skin was cleaned and sterile bandage applied. The patient tolerated the procedure well. The patient was transported to the recovery area in stable condition where they were observed for an appropriate amount of time prior to discharge, without evidence of complication. The patient was instructed to avoid excessive activity for the next 48 hours, including climbing and frequent use of stairs. Showers only for 48 hours. They were instructed not to drive or operate heavy machinery for 24 hours. They are to monitor for severe headaches, fevers, chills, night sweats, erythema/swelling at the site or any other signs of infection, bleeding/bruising, bowel or bladder changes as well as new pain, weakness or numbness in the upper or lower extremity. Should they notice these changes, they are instructed to call our office immediately or report directly to
[2023-12-16 10:48] VITALS: BP 135/70; PULSE 65; RESP 18; TEMP 36.6; O2SAT 98; BMI 30.9
[2023-12-16 11:29] VITALS: BP 177/86; PULSE 70; RESP 21; O2SAT 95
[2023-12-16 11:39] VITALS: BP 175/81; PULSE 73; RESP 16; O2SAT 96
[2023-12-16] MEDS: LIDOCAINE HCL 1% PF INJ 5 ML VIAL INFILTRATE ×2 (11:43→11:51)
[2023-12-16 11:49] VITALS: BP 161/80; PULSE 68; RESP 12; O2SAT 93
[2023-12-16] MEDS: BUPivacaine HCL 0.5% 10 ML AMP 2 ML INFILTRATE (11:51)
[2023-12-16] MEDS: BETAMETHASONE SODIUM PHOSPHATE PF INJ 6 MG/ML VIAL INFILTRATE (11:51)
[2023-12-16 11:59] VITALS: BP 115/78; PULSE 64; RESP 15; O2SAT 97
== END 2023-12-16 12:18 | disposition home or self-care (01) ==
PROVIDERS: PCP Internal Medicine; Visit Provider Anesthesiology Pain Medicine
PROC: (CPT 64483; principal; 2023-12-16 12:00)
DX: M54.17 Radiculopathy, lumbosacral region (principal); M48.061 Spinal stenosis, lumbar region without neurogenic claudication
CPT/HCPCS: 64483; 99199

== ENCOUNTER 2023-12-16 16:55 | Outpatient (CLI) | payer MEDICARE, OTHER, SELFPAY ==
[2023-12-16 17:24] LABS: Hematocrit 44.1 % (42.0-52.0); Hemoglobin 14.7 g/dL (14.0-18.0); Mean Corpuscular HGB Conc 33.3 g/dl (32-36); Mean Corpuscular Hemoglobin 29.3 pg (26-34); Mean Platelet Volume 9.9 fl (7.4-10.4); Platelet Count Result 176 k/mm3 (150-375); Red Blood Count 5.01 M/mm3 (4.6-6.20); Red Cell Distribution Width 14.4 % (11.5-14.5); White Blood Count 13.1 K/mm3 (4.5-10.0)
[2023-12-16 17:31] LABS: Alanine Aminotransferase 17 U/L (6-50); Albumin Level 4.4 g/dL (3.5-5.1); Alkaline Phosphatase 79 U/L (38-126); Aspartate Amino Transferase 21 U/L (17-59); Bilirubin,Total 0.2 mg/dL (0.2-1.3)
== END 2023-12-16 16:56 | disposition home or self-care (01) ==
LOC: ANHLAB 17:01
PROVIDERS: PCP Internal Medicine; Visit Provider Dermatology
DX: B35.4 Tinea corporis (principal)
CPT/HCPCS: 36415; 80076; 85027

== ENCOUNTER 2024-01-02 09:15 | Outpatient (CLI) | payer MEDICARE, OTHER, SELFPAY ==
[2024-01-02 10:21] LABS: Hematocrit 43.1 % (42.0-52.0); Hemoglobin 14.4 g/dL (14.0-18.0); Mean Corpuscular HGB Conc 33.4 g/dl (32-36); Mean Corpuscular Hemoglobin 29.1 pg (26-34); Mean Corpuscular Volume 87.1 fl (80-100); Mean Platelet Volume 10.2 fl (7.4-10.4); Platelet Count Result 178 k/mm3 (150-375); Red Blood Count 4.95 M/mm3 (4.6-6.20); Red Cell Distribution Width 14.6 % (11.5-14.5); White Blood Count 6.6 K/mm3 (4.5-10.0)
[2024-01-02 10:31] LABS: Alanine Aminotransferase 16 U/L (6-50); Alkaline Phosphatase 66 U/L (38-126); Aspartate Amino Transferase 20 U/L (17-59); Bilirubin,Total 0.5 mg/dL (0.2-1.3)
== END 2024-01-02 09:16 | disposition home or self-care (01) ==
PROVIDERS: PCP Internal Medicine; Visit Provider Dermatology
DX: B35.4 Tinea corporis (principal)
CPT/HCPCS: 36415; 80076; 85027

== ENCOUNTER 2024-08-24 08:48 | Outpatient (CLI) | payer MEDICARE, OTHER, SELFPAY ==
--- OUTSIDE RECORDS SUMMARY | 2024-08-24 09:08 | XMS_ITS | Clinical Summary ---
Author Organization [facility] Address [address] [place] [address] Care Team Providers Care Airborne Missions Systems Name Role Phone No, Pcp Primary Care Provider Unavailabl e Allergies No known active allergies Medications aspirin 81 mg EC tablet Take 1 tablet (81 mg total) by mouth daily Active rosuvastatin (Crestor) 20 mg tablet Take 0.5 tablets (10 mg total) by mouth daily Active valsartan (DIOVAN) 80 mg tablet Take 1 tablet (80 mg total) by mouth daily Active amLODIPine (NORVASC) 10 mg tablet Take 1 tablet (10 mg total) by mouth daily Active cetirizine (ZyrTEC) 10 mg tablet Take 1 tablet (10 mg total) by mouth daily Active esomeprazole (NexIUM) 20 mg capsule Take 1 capsule (20 mg total) by mouth every morning before breakfast Active multivitamin with minerals tablet Take 1 tablet by mouth daily Active glucosam-chond- dzy4-Q-lery-bor 528-298-01-0.5 mg tablet Take by mouth Active FIBER-CAPS, PSYLLIUM HUSK, ORAL Take by mouth Active guselkumab (Tremfya) 100 mg/mL auto-injector Inject 1 mL (100 mg total) under the skin once every eight weeks Active Social History Tobacco Use Types Packs/Day Years Used Date Smoking Tobacco: Never Smokeless Tobacco: Never Tobacco Cessation:Counseling Given: Not Answered Alcohol Use Standard Drinks/Week Comments Never 0 (1 standard drink = 0.6 oz pur e alcohol) Sex and Gender Information Value Date Recorded Sex Assigned at Not on file Legal Sex Male 8:02 AM MDT Gender Identity Not on file Sexual Orientation Not on file Last Filed Vital Signs Vital Sign Reading Time Taken Comments Blood Pressure 115/56 09/05/2022 2:15 PM MDT Pulse 61 09/05/2022 2:15 PM MDT Temperature 36.6 C (97.9 F) 09/05/2022 2:15 PM MDT Respiratory Rate 18 09/05/2022 11:45 AM MDT Oxygen Saturation 91% 09/05/2022 2:15 PM MDT Inhaled Oxygen Concentration - - Weight 90.7 kg (200 lb) 09/05/2022 11:26 AM MDT Height 170.2 cm (5' 7) 09/05/2022 11:26 AM MDT Body Mass Index 31.32 09/05/2022 11:26 AM MDT Plan of Treatment Health Maintenance Due Date Last Done Comments Depression Screening 1945 DTaP,Tdap,and Td Vaccines (1 - Tdap) 05/30/1962 Pneumococcal 50+ (1 of 1 - PCV) 05/30/1993 Zoster Vaccines Series (1 of 2) 05/30/1993 RSV 75+ Years, High Risk 60+ , or (1 - 1-dose 75+ series) 05/30/2018 COVID-19 Vaccine (1 - 2023-2 5 season) 2023 Influenza Vaccine (Season Ended) 2024 HIB Vaccines Aged Out No longer eligi ble based on patient's age to complete this topic HPV Vaccines Aged Out No longer eligi ble based on patient's age to complete this topic Hepatitis A Vaccines Aged Out No long er eligible based on patient's age to complete this topic Hepatitis B Vaccines Aged Out No long er eligible based on patient's age to complete this topic IPV Vaccines Aged Out No longer eligi ble based on patient's age to complete this topic Meningococcal B Vaccine Aged Out No l onger eligible based on patient's age to complete this topic Meningococcal Vaccine Aged Out No lindsay burton eligible based on patient's age to complete this topic Insurance [facility] MEDICARE PART A AND B Care Teams Airborne Missions Systems Relationship Specialty Start Date End Date No, Pcp PCP - General Family Medicine 09/04/22
--- OUTSIDE RECORDS SUMMARY | 2024-08-24 09:08 | XMS_ITS | Clinical Summary ---
Author Organization [facility] Address [address], [facility] [address] [place] [address] Phone Care Team Providers Care Business Development Manager Name Role Phone Nick Jessica DO Primary Care Provider [phone] Allergies No known active allergies Medications amLODIPine (NORVASC) 10 MG Tablet Take 10 mg by mouth daily. Active cetirizine (ZYRTEC) 10 MG Tablet Take 10 mg by mouth daily. Active fluconazole (DIFLUCAN) 100 MG Tablet Take 100 mg by mouth daily. Active esomeprazole (NEXIUM) 20 MG CAPSULE DELAYED RELEASE Take 20 mg by mouth daily. Active Psyllium (METAMUCIL PO) Take by mouth. Active Misc Natural Products (OSTEO BI-FLEX TRIPLE STRENGTH) Tablet Take by mouth. Activ e Multiple Vitamins-Minera ls (CENTRUM SILVER PO) Take by mouth. Acti ve Aspirin 81 MG Tablet Take 81 mg by mouth daily. Active fish oil-omega-3 fatty acids 1000 MG Capsule Take 1,000 mg by mouth daily. Active albuterol (PROAIR HFA) 108 (90 Base) MCG/ACT Aerosol Solution take 2 Puffs by inhalation every 4 hours as needed for Wheezing. Active metroNIDAZOLE (FLAGYL) 500 MG Tablet Take 1 Tab by mouth 3 times daily. 30 Tab 9 Active Family History Medical History Relation Name Comments Colon Cancer Brother Asthma Father Prostate Cancer Father Heart Disease Mother Breast Cancer Sister 2 sisters Relation Name Status Comments Brother Father Mother Sister Social History Tobacco Use Types Packs/Day Years Used Date Smoking Tobacco: Former Cigarettes 0 11/26/1966 - 11/26/1986 Smokeless Tobacco: Never Alcohol Use Standard Drinks/Week Comments No 0 (1 standard drink = 0.6 oz pur e alcohol) Sex and Gender Information Value Date Recorded Sex Assigned at Not on file Legal Sex Male 9:37 PM CDT Gender Identity Not on file Sexual Orientation Not on file Plan of Treatment Health Maintenance Due Date Last Done Comments Hepatitis C Virus (HCV) Screening 1945 Zoster Immunization (2 of 3) 03/02/2009 01/05/2009 Respiratory Syncytial Virus (RSV) Immunization (Adult) (1 - 1-dose 75+ series) 05/30/2018 SARS-COV-2 Immunization (3 - season) 2023 01/08/2021, 05/20/2020 Influenza Immunization (Season Ended) 2024 11/28/2017, 11/02/2016, 11/15/2015, Additional history exists DTaP/Tdap/Td Immunization Discontinued 01/31/2017 TdaP Immunization Completed 01/31/2017 Pneumococcal Immunization (50+ years) Completed 11/28/2017, 11/15/2015 Pneumococcal Immunization Combined Discontinued 11/28/2017, 11/15/2015 Hepatitis B Immunization Aged Out No longer eligible based on patient's age to complete this topic Human Papillomavirus (HPV) Immunization Aged Out No longer eligible based on patient's age to complete this topic Meningococcal Immunization (ACWY) Aged Out No longer eligible based on patient's age to complete this topic Rotavirus Immunization Aged Out No lo nger eligible based on patient's age to complete [place] [address] MEDICARE Care Teams Business Development Manager Relationship Specialty Start Date End Date Nick Jessica DO [address] [facility] [address] [place] [address] PCP - General Internal Medicine 12/08/18
--- OUTSIDE RECORDS SUMMARY | 2024-08-24 09:08 | XMS_ITS | Referral Summary ---
Author Organization [facility] Address [address] [place] [address] Care Team Providers Care Machine I Engraver Name Role Phone No, Pcp Primary Care [...] 1 tablet by mouth daily Active glucosam-chond- bgn5-F-dqic-bor 481-322-87-0.5 mg tablet Take by mouth Active FIBER-CAPS, [...] 09/05/2022 11:26 AM MDT Plan of Treatment Not on file Insurance [facility] MEDICARE PART A AND B Care Teams Machine I Engraver Relationship Specialty Start Date End Date No, Pcp PCP - General Family Medicine 09/04/22
--- OUTSIDE RECORDS SUMMARY | 2024-08-24 09:08 | XMS_ITS | Continuity of Care Document ---
Author Organization [facility] Address [address] [place] [address] Phone Care Team Providers Care Prescriptionist Name Role Phone Cony Silverman OD Unavailable [...] route every day 80 MG - Active Ventolin HFA 90 mcg/actuation aerosol inhaler inhale 2 puff by inhalation route every 4 - 6 hours as needed 180 MCG - Active Zyrtec 10 mg tablet take 1 tablet by ora l route every day 10 MG - Active Nexium 20 mg capsule,delayed release take 1 capsule by oral route every day at least 1 hour before a meal swallowing whole. Do not crush or chew granules. 20 MG - Active aspirin 81 mg tablet,delayed release take 1 tablet by oral route every day 81 MG - Active multivitamin tablet take 1 tablet by ora l route every day 1 tablet - Active Osteo Bi-Flex (5-Loxin) 1,500 mg-400 unit-100 mg tablet take 1 by oral route every day 1 - Active amlodipine 10 mg tablet take 1 tablet by oral route every day 10 MG - Active Procedures Procedure Date No Charge [...] Copied on Encounter Office/outpa tient Visit, Est [facility], [address], [place], [place], [id number], [place] tel:[phone] [place] Professional Dry Eye Evaluation (chief complaint) Dry eye syndrome of bilateral lacrimal glands 4 Herrera OD Cony. [address], [place], [place], [address], [place]. tel:[phone] Referring Provider: Leonardo Leone MD, [address], [place], [address]. tel:[phone] [facility], [address], [place], [place], [address], tel:[phone] [place] Professional Post-Op (chief complaint) Dry eye syndrome of bilateral lacrimal glands 8 4 Herrera OD Cony. [address] [place] [address] [address], [place], [place], [address], [place]. tel:[phone] Referring Provider: Leonardo Leone MD, [address], [place], [address]. tel:[phone] [facility], [address] [place] [address] [address], [place], [place], [address], tel:[phone] [place] 2 week postop visit (chief complaint) Postop check 4 Herrera OD Cony. [address] [place] [address] [address], [place], [place], [address], [place]. tel:[phone] Referring Provider: Leonardo Leone MD, [address], [place], [address]. tel:[phone] [facility], [address], [place], [place], [address], [place] tel:[phone] [place] Professional Blurry/decr eased vision (chief complaint) Postop check 4 Herrera OD Cony. [address] [place] [address] [address], [address], [place], [place], [address], [place]. tel:[phone] Referring Provider: Leonardo Leone MD, [address], [place], [address]. tel:[phone] [facility], [address] [place] [address] [address], [place], [place], [address], tel:[phone] SEC [place] Professional 1 Day CE/IOL LensAR PO (chief complaint) Postop check 4 Herrera OD Cony. [address] [place] [address] [address], [address], [place], [place], [address], [place]. tel:[phone] Referring Provider: Leonardo Leone MD, [address], [place], [address]. tel:[phone] [facility], [address] [place] [address] [address], [place], [place], [address], [place] tel:[phone] [facility] [place] No Information 4 [place] Markus. [address] [place] [address] [facility], [address], [place], [place], [address], [place]. tel:[phone] Referring Provider: Leonardo Leone MD, [address], [place], [address]. tel:[phone] [facility], [address] [place] [address] [address], [place], [place], [address], [place] tel:[phone] [place] No Information 4 Guillermo Markus. [address] [place] [place] [address] [facility], [address], [place], [place], [address], [place]. tel:[phone] Referring Provider: Leonardo Leone MD, [address], [place], [address]. tel:[phone] [facility], [address] [place] [address] [address], [place], [place], [address], [place] tel:[phone] SEC [place] Professional Post-Op (chief complaint) Postop check 4 Luis M OD Alyssa. [address] [place] [address] [facility], [address], [place], [place], [address], [place]. tel:[phone] Referring Provider: Leonardo Leone MD, [address], [place], [address]. tel:[phone] [facility], [address] [place] [address] [address], [place], [place], [address], tel:[phone] SEC [facility] Professional 1 Day CE/IOL PO (chief complaint) Postop check 4 Herrera OD Cony. [address] [place] [address] [address], [address], [place], [place], [address], [place]. tel:[phone] Referring Provider: Leonardo Leone MD, [address], [place], [address]. tel:[phone] [facility], [address] [place] [address] [address], [place], [place], [address], tel:[phone] [facility] No Information 4 [place] Markus. [address] [place] [address] [facility], [address], [place], [place], [address], . tel:[phone] Referring Provider: Leonardo Leone MD, [address], [place], [address]. tel:[phone] [facility], [address] [place] [address] [address], [place], [place], [address], tel:[phone] [place] No Information 4 [place] Markus. [address] [place] [address] [facility], [address], [place], [place], [address], [place]. tel:[phone] Referring Provider: Leonardo Leone MD, [address], [place], [address]. tel:[phone] Office/outpa tient Visit, Est [facility], [address] [place] [address] [address], [place], [place], [address], tel:[phone] [place] Cataract evaluation (chief complaint) Combined forms of age-related cataract, bilateralPVD (posterior vitreous detachment), bilateralCho roidal nevus, right eye May- 4 [place] Markus. [address] [place] [address] [facility], [address], [place], [place], [address], [place]. tel:[phone] Referring Provider: Leonardo Leone MD, [address], [place], [address]. tel:[phone] Office/outpa tient Visit, Est [facility], [address] [place] [address] [address], [place], [place], [address], [place] tel:[phone] [place] Professional blurry vision and floaters (chief complaint) Combined forms of age-related cataract, bilateralPVD (posterior vitreous detachment), bilateral Apr- 4 Luis M OD Alyssa. [address] [place] [address] [facility], [address], [place], [place], [address], [place]. tel:[phone] Referring Provider: Leonardo Leone MD, [address], [place], [address]. tel:[phone] [facility], [address] [place] [address] [address], [place], [place], [address], [place] tel:[phone] [place] Professional Complete Exam (chief complaint) Combined forms of age-related cataract, bilateralHis tory of strokeChoroi liv nevus, right eye Rick- 3 Daren Talley. [address] [facility], [address], [place], [address], [place]. tel:[phone] Referring Provider: Leonardo Leone MD, [address], [place], [address]. tel:[phone] [facility], [address] [place] [address] [address], [place], [place], [address], [place] tel:[phone] [place] Professional Complete Exam (chief complaint) Choroidal nevus, right eyeCombined forms of age-related cataract, bilateralHis tory of strokePVD (posterior vitreous detachment), bilateralSub jective visual disturbance, bilateral May- 2 Daren Talley. [address] [facility], [address], [place], [place], [address], . tel:[phone] Referring Provider: Leonardo Leone MD, [address], [place], [address]. tel:[phone] [facility], [address], [place], [place], [address], tel:[phone] [place] Professional Complete Exam (chief complaint) Combined forms of age-related cataract, bilateralCho roidal nevus, right eyeDermatoch alasis of both upper eyelids 1 Daren Talley. [address], [facility] [address], [place], [place], [address], . tel:[phone] Referring Provider: Leonardo Leone MD, [address], [place], [address]. tel:[phone] [facility], [address], [place], [place], [address], tel:[phone] [place] Professional No Information 1 Daren Talley. [address], [facility] [address], [place], [place], [address], . tel:[phone] Family History Family Member Type Diagnosis Age At Onset No Information Payers Payer name Insurance type Covered green party ID Authorcristia lou(s) [place] [id number] [facility] [id number] Social History Type Description Quantity Date Captured [...] 3 years ago. 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
[2024-08-24 17:00] LABS: Anion Gap 9 mmol/L (4-12); Blood Urea Nitrogen 15 mg/dL (9-20); Calcium 9.1 mg/dL (8.4-10.2); Carbon Dioxide 25 mmol/L (22-30); Chloride 105 mmol/L (98-107); Cholesterol 161 mg/dL (0-200); Estimated Glomerular Filt Rate > 60; Glucose 71 mg/dL (65-110); HDL Direct 38 mg/dL; Potassium 3.5 mmol/L (3.4-5.0); Sodium 139 mmol/L (137-145); Triglycerides 143 mg/dL (<150)
[2024-08-24 17:10] LABS: LDL Cholesterol Direct 85 mg/dL
[2024-08-24 17:39] LABS: Prostate Specific Antigen 1.8 ng/mL (< OR = 4.0)
[2024-08-28 23:05] LABS: Apolipoprotein B 81 mg/dL
== END 2024-08-24 08:49 | disposition home or self-care (01) ==
PROVIDERS: PCP Internal Medicine; Visit Provider Internal Medicine
DX: I63.9 Cerebral infarction, unspecified (principal); I10 Essential (primary) hypertension; Z12.5 Encounter for screening for malignant neoplasm of prostate
CPT/HCPCS: 36415; 80048; 80061; 82172; 84153; G0103

== ENCOUNTER 2024-08-26 13:26 | Outpatient (CLI) | payer MEDICARE, OTHER, SELFPAY ==
--- NOTE | ~2024-08-26 | MR_ITS ---
MRI of the lumbar spine Clinical History: Radiculopathy Technique: Axial T2-weighted images, and sagittal T1-weighted, T2-weighted, and STIR images were acqu ired. Following intravenous administration of 18 cc MultiHance gadolinium, T1-weighted fat-sat imagin g was performed in the axial and sagittal planes. COMPARISON: 11/08/2021 Findings: No fracture or subluxation seen in the lumbar spine. Vertebral bodies maintain normal heigh t and alignment. No bone marrow signal abnormality seen. At L1-L2, there is no disc bulge or herniation. No spinal canal stenosis or neural foraminal narrowin g. At L2-L3, there is minimal disc bulge. No spinal canal stenosis. There is mild left neural foraminal narrowing. Right neural foramen preserved. At L3-L4, there is mild disc bulge with mild facet arthropathy. No central canal stenosis. There is m oderate right neural foraminal narrowing. Left neural foramen may be minimally narrowed. At L4-L5, there is mild diffuse disc bulge with moderate facet arthropathy. No central canal stenosis . There is moderate to severe right neural foraminal narrowing. There is mild left neural foraminal n arrowing. At L5-S1, there is minimal disc bulge with severe facet arthropathy. No central canal stenosis. There is severe left neural foraminal narrowing, and moderate to severe right neural foraminal narrowing. Paravertebral soft tissues are unremarkable. No abnormal postcontrast enhancement identified. Impression: Iqcb-yt-sthzzqek spondylosis, as detailed above, with multilevel neural foraminal narrowing, worst at L3-L4, L4-L5, and L5-S1. Reviewed, dictated and finalized at location . Impression: Evxd-cj-gtzjrivg spondylosis, as detailed above, with multilevel neural foramin al narrowing, worst at L3-L4, L4-L5, and L5-S1.
--- OUTSIDE RECORDS SUMMARY | 2024-08-26 14:06 | XMS_ITS | Clinical Summary ---
Author Organization [facility] Address [address] [place] [address] Care Team Providers Care Otolaryngology Rep Name Role Phone No, Pcp Primary Care [...] 1 tablet by mouth daily Active glucosam-chond- wem7-K-yoeu-bor 328-232-10-0.5 mg tablet Take by mouth Active FIBER-CAPS, [...] patient's age to complete this topic Insurance [facility] MEDICARE PART A AND B Care Teams Otolaryngology Rep Relationship Specialty Start Date End Date No, Pcp PCP - General Family Medicine 09/04/22
--- OUTSIDE RECORDS SUMMARY | 2024-08-26 14:06 | XMS_ITS | Referral Summary ---
Author Organization [facility] Address [address] [place] [address] Care Team Providers Care Cotton Sampler Name Role Phone No, Pcp Primary Care [...] 1 tablet by mouth daily Active glucosam-chond- cmq6-B-duso-bor 455-612-32-0.5 mg tablet Take by mouth Active FIBER-CAPS, [...] Plan of Treatment Not on file Insurance [facility] MEDICARE PART A AND B Care Teams Cotton Sampler Relationship Specialty Start Date End Date No, Pcp PCP - General Family Medicine 09/04/22
--- OUTSIDE RECORDS SUMMARY | 2024-08-26 14:06 | XMS_ITS | Continuity of Care Document ---
Author Organization [facility] Address [address] [facility] [address] [place] [address] Phone Care Team Providers Care Accounts Payable Processor Name Role Phone Cony Silverman OD Unavailable [...] Copied on Encounter Office/outpa tient Visit, Est [facility] Eye [facility], [address], [place], [place], [address], [place] tel:[phone] [place] Professional Dry Eye Evaluation (chief complaint) Dry eye syndrome of bilateral lacrimal glands 4 Herrera OD Cony. [address], [address], [place], [place], [address], [place]. tel:[phone] Referring Provider: Leonardo Leone MD, [address], [place], [address]. tel:[phone] [facility], [address], [place], [place], [address], tel:[phone] [place] Professional Post-Op (chief complaint) Dry eye syndrome of bilateral lacrimal glands 8 4 Herrera OD Cony. [address] [place] [address] [address], [address], [place], [place], [address], [place]. tel:[phone] Referring Provider: Leonardo Leone MD, [address], [place], [address]. tel:[phone] [facility], [address] [place] [address] [address], [place], [place], [address], tel:[phone] [place] 2 week postop visit (chief complaint) Postop check 4 Herrera OD Cony. [address] [place] [address] [address], [address], [place], [place], [address], [place]. tel:[phone] Referring Provider: Leonardo Leone MD, [address], [place], [address]. tel:[phone] [facility], [address], [place], [place], [address], [place] tel:[phone] [place] Professional Blurry/decr eased vision (chief complaint) Postop check 4 Herrera OD Cony. [address] [place] [address] [address], [address], [place], [place], [address], [place]. tel:[phone] Referring Provider: Leonardo Leone MD, [address], [place], [address]. tel:[phone] [facility], [address] [place] [address] [address], [place], [place], [address], tel:[phone] [place] Professional 1 Day CE/IOL LensAR PO (chief complaint) Postop check 4 Herrera OD Cony. [address] [place] [address] [address], [address], [place], [place], [address], [place]. tel:[phone] Referring Provider: Leonardo Leone MD, [address], [place], [address]. tel:[phone] [facility], [address] [place] [address] [address], [place], [place], [address], [place] tel:[phone] [facility] [place] No Information 4 Afton Markus. [address] [place] [address] xAd [facility], [address], [place], [place], [address], [place]. tel:[phone] Referring Provider: Leonardo Leone MD, [address], [place], [address]. tel:[phone] [facility], [address] [place] [address] [address], [place], [place], [address], [place] tel:[phone] [place] No Information 4 Guillermo Markus. [address] [place] [address] xAd [facility], [address], [place], [place], [address], [place]. tel:[phone] Referring Provider: Leonardo Leone MD, [address], [place], [address]. tel:[phone] [facility], [address] [place] [address] [address], [place], [place], [address], [place] tel:[phone] [place] Professional Post-Op (chief complaint) Postop check 4 Luis M OD Alyssa. [address] [place] [address] xAd [facility], [address], [place], [place], [address], [place]. tel:[phone] Referring Provider: Leonardo Leone MD, [address], [place], [address]. tel:[phone] [facility], [address] [place] [address] [address], [place], [place], [address], tel:[phone] SEC [facility] Professional 1 Day CE/IOL PO (chief complaint) Postop check 4 Herrera OD Cony. [address] [place] [address] [address], [address], [place], [place], [address], [place]. tel:[phone] Referring Provider: Leonardo Leone MD, [address], [place], [address]. tel:[phone] [facility], [address] [place] [address] [address], [place], [place], [address], tel:[phone] [facility] No Information 4 Afton Markus. [address] [place] [address] xAd [facility], [address], [place], [place], [address], . tel:[phone] Referring Provider: Leonardo Leone MD, [address], [place], [address]. tel:[phone] [facility], [address] [place] [address] [address], [place], [place], [address], tel:[phone] [place] No Information 4 Afton Markus. [address] [place] [address] xAd [facility], [address], [place], [place], [address], [place]. tel:[phone] Referring Provider: Leonardo Leone MD, [address], [place], [address]. tel:[phone] Office/outpa tient Visit, Est [facility], [address] [place] [address] [address], [place], [place], [address], tel:[phone] [place] Cataract evaluation (chief complaint) Combined forms of age-related cataract, bilateralPVD (posterior vitreous detachment), bilateralCho roidal nevus, right eye May- 4 Afton Markus. [address] [place] [address] xAd [facility], [address], [place], [place], [address], [place]. tel:[phone] Referring Provider: Leonardo Leone MD, [address], [place], [address]. tel:[phone] Office/outpa tient Visit, Est [facility] Eye [facility], [address] [place] [address] [address], [place], [place], [address], [place] tel:[phone] [place] Professional blurry vision and floaters (chief complaint) Combined forms of age-related cataract, bilateralPVD (posterior vitreous detachment), bilateral Apr- 4 Luis M OD Alyssa. [address] [place] [address] xAd [facility], [address], [place], [place], [address], [place]. tel:[phone] Referring Provider: Leonardo Leone MD, [address], [place], [address]. tel:[phone] [facility], [address] [place] [address] [address], [place], [place], [address], [place] tel:[phone] [place] Professional Complete Exam (chief complaint) Combined forms of age-related cataract, bilateralHis tory of strokeChoroi liv nevus, right eye Rick- 3 Daren Talley. [address] [facility], [place], [address], [place]. tel:[phone] Referring Provider: Leonardo Leone MD, [address], [place], [address]. tel:[phone] [facility], [address] [place] [address] [address], [place], [place], [address], [place] tel:[phone] [place] Professional Complete Exam (chief complaint) Choroidal nevus, right eyeCombined forms of age-related cataract, bilateralHis tory of strokePVD (posterior vitreous detachment), bilateralSub jective visual disturbance, bilateral May- 2 Daren Talley. [address] [facility], [address], [place], [place], [address], . tel:[phone] Referring Provider: Leonardo Leone MD, [address], [place], [address]. tel:[phone] [facility], [address], [place], [place], [address], tel:[phone] [place] Professional Complete Exam (chief complaint) Combined forms of age-related cataract, bilateralCho roidal nevus, right eyeDermatoch alasis of both upper eyelids 1 Daren Talley. [address], [facility] A, [place], [place], [address], . tel:[phone] Referring Provider: Leonardo Leone MD, [address], [place], [address]. tel:[phone] [facility], [address], [place], [place], [address], tel:[phone] [place] Professional No Information 1 Daren Talley. [address], [facility] A, [place], [place], [address], . tel:[phone] Family History Family Member Type Diagnosis Age At Onset No Information Payers Payer name Insurance type Covered constitution party ID Authorcristia lou(s) [place] [id number] [facility] [id number] Social History Type Description Quantity Date Captured [...] years ago. 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
--- OUTSIDE RECORDS SUMMARY | 2024-08-26 14:06 | XMS_ITS | Clinical Summary ---
Author Organization [facility] Address [address], [facility] [address] [place] [address] Phone Care Team Providers Care Welder Railcar Mechanic Name Role Phone Nick Jessica DO Primary Care Provider [phone] Allergies No known active allergies Medications amLODIPine [...] patient's age to complete [place] [address] MEDICARE Care Teams Welder Railcar Mechanic Relationship Specialty Start Date End Date Nick Jessica DO [address] [facility] [address] [place] [address] PCP - General Internal Medicine 12/08/18
== END 2024-08-26 13:27 | disposition home or self-care (01) ==
PROVIDERS: PCP Internal Medicine; Visit Provider Neurological Surgery
DX: M47.816 Spondylosis without myelopathy or radiculopathy, lumbar region (principal); M47.817 Spondylosis without myelopathy or radiculopathy, lumbosacral region; M48.061 Spinal stenosis, lumbar region without neurogenic claudication; M48.07 Spinal stenosis, lumbosacral region
CPT/HCPCS: 72158; A9577

== ENCOUNTER 2024-09-09 12:22 | Outpatient (CLI) | payer MEDICARE, OTHER, SELFPAY ==
--- NOTE | ~2024-09-09 | MR_ITS ---
MRI of the left hip Clinical history: Arthritis Technique: Coronal T1-weighted, T2-weighted, and proton-density fat-sat images, and axial T1-weighted and proton-density fat-sat images were acquired through the pelvis. Coronal T2-weighted images and c oronal, axial, and sagittal proton-density fat-sat images were acquired through the left hip. Findings: There is no fracture or avascular necrosis of either hip. Bone marrow signals the proximal femora and pelvic bones are unremarkable. There is mild chondral thinning at the superior aspect of b oth hip joints. No joint effusion. No definite acetabular labral tear identified. Visualized musculature about the pelvis and left hip is unremarkable. No muscle atrophy or edema. The re is a low-grade chronic partial tearing at the left hamstring tendon origins. Remaining tendons are intact. No soft tissue mass or fluid collection. IMPRESSION: Minimal/mild degenerative change of both hip joints. 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 Reviewed, dictated and finalized at [facility].
== END 2024-09-09 12:23 | disposition home or self-care (01) ==
LOC: MICIMG 12:23
PROVIDERS: PCP Internal Medicine; Visit Provider Neurological Surgery
DX: M16.12 Unilateral primary osteoarthritis, left hip (principal); M16.0 Bilateral primary osteoarthritis of hip; S76.012A Strain of muscle, fascia and tendon of left hip, initial encounter; X58.XXXA Exposure to other specified factors, initial encounter
CPT/HCPCS: 73721

== ENCOUNTER 2024-10-21 21:53 | Emergency (ER) | payer MEDICARE, OTHER, SELFPAY ==
--- NOTE | ~2024-10-21 | XR_ITS ---
HISTORY: fall stairs; hip/prox femur pain COMPARISON: 09/22/2023 and 08/15/2022 TECHNIQUE: 2 views of the left hip along with an AP view of the pelvis FINDINGS: No acute fracture or dislocation is identified. Superior lateral sclerosis of the femoral acetabular joint space is present consistent with osteoarth ritis. Degenerative disease within the visualized portion of the lower lumbar spine. Fecal stasis within the colon. Air within the rectum. Age-appropriate mineralization. IMPRESSION: Degenerative disease, without acute fracture or dislocation. Reviewed, dictated and finalized at location A.
--- NOTE | ~2024-10-21 | CT_ITS ---
Noncontrast CT scan of the left hip CLINICAL HISTORY: Pain TECHNIQUE: Axial noncontrast imaging of the left hip spine was performed. Sagittal and coronal reform atted images were constructed. Dose reduction technique was used on this scan by utilizing automated exposure control and iterative reconstruction technique. The dose-length product (DLP) was 422.78 mGy -cm. FINDINGS: No acute fracture or dislocation seen. There is minimal degenerative change of the left hip joint. Left SI joint is intact. No joint effusions. Visualized musculature of the left hip is unremarkable. No soft tissue mass or fluid collection seen. Impression: No acute abnormality. Minimal degenerative change of the left hip joint. Reviewed, dictated and finalized at location . Impression: No acute abnormality. Minimal degenerative change of the left hip joint.
--- NOTE | ~2024-10-21 | XR_ITS ---
HISTORY: fall, hx injury and neuropathy; abrasion COMPARISON: None TECHNIQUE: 2 views of the left elbow were performed FINDINGS: No acute fracture is identified. Elevation of the anterior fat pad is identified suggesting a elbow joint effusion. 10 mm loose body adjacent to the lateral condyle of the left elbow, possibly representing an acute fr acture for which clinical correlation is needed. The adjacent proximal radius is unremarkable. Osteochondroma is identified within the lateral supracondylar ridge. Remaining overlying soft tissues are unremarkable. Bone mineralization is age-appropriate. IMPRESSION: Degenerative disease, as detailed above. Osseous loose body adjacent to the lateral condyle of the left elbow possibly an acute fracture for w hich clinical correlation is needed regarding point tenderness. Elbow joint effusion. Reviewed, dictated and finalized at location A. IMPRESSION: Degenerative disease, as detailed above. Osseous loose body adjacent to the lateral condyle of the left elbow possibly a n acute fracture for which clinical correlation is needed regarding point tende rness. Elbow joint effusion.
--- OUTSIDE RECORDS SUMMARY | 2024-10-21 21:56 | XMS_ITS | Clinical Summary ---
Author Organization [facility] Address [address] [place] [address] Care Team Providers Care Senior Credit Analyst Name Role Phone No, Pcp Primary Care [...] 1 tablet by mouth daily Active glucosam-chond- uif4-Z-tvrj-bor 986-616-07-0.5 mg tablet Take by mouth Active FIBER-CAPS, [...] - 2023-2 5 season) 2023 Influenza Vaccine (#1) 2024 HIB Vaccines Aged Out No longer [...] patient's age to complete this topic Insurance [facility] MEDICARE PART A AND B Care Teams Senior Credit Analyst Relationship Specialty Start Date End Date No, Pcp PCP - General Family Medicine 09/04/22
--- OUTSIDE RECORDS SUMMARY | 2024-10-21 21:56 | XMS_ITS | Clinical Summary ---
Author Organization [facility] Address [address], [facility] [address] [place] [address] Phone Care Team Providers Care Statistics Professor Name Role Phone Nick Jessica DO Primary Care Provider [phone] Allergies No known active allergies Medications amLODIPine [...] - season) 2023 01/08/2021, 05/20/2020 Influenza Immunization (#1) 11/15/202411/15, 11/02/2016, 11/15/2015, Additional history exists DTaP/Tdap/Td Immunization [...] patient's age to complete [place] [address] MEDICARE Care Teams Statistics Professor Relationship Specialty Start Date End Date Nick Jessica DO [address] [facility] [address] [place] [address] PCP - General Internal Medicine 12/08/18
--- OUTSIDE RECORDS SUMMARY | 2024-10-21 21:56 | XMS_ITS | Continuity of Care Document ---
Author Organization [facility] [place] Address [address] [facility] [address] [place] [address] Phone Care Team Providers Care Payroll Tax Analyst Name Role Phone Cony Silverman OD Unavailable [...] Copied on Encounter Office/outpa tient Visit, Est [facility], [address], [place], [place], [address], [place] tel:[phone] [place] Professional Dry Eye Evaluation (chief complaint) Dry eye syndrome of bilateral lacrimal glands 4 Herrera OD Cony. [address], [address], [place], [place], [address], [place]. tel:[phone] Referring Provider: Leonardo Leone MD, [address], [place], [address]. tel:[phone] [facility], [address], [place], [place], [address], tel:[phone] [place] Professional Post-Op (chief complaint) Dry eye syndrome of bilateral lacrimal glands 8 4 Herrera OD Cony. [address] [place] [address] [address], [address], [place], [place], [address], [place]. tel:[phone] Referring Provider: Leonardo Leone MD, [address], [place], [address]. tel:[phone] [facility], [address] [place] [address] [address], [place], [place], [address], tel:[phone] [place] 2 week postop visit (chief complaint) Postop check 4 Herrera OD Cony. [address] [place] [address] [address], [address], [place], [place], [address], [place]. tel:[phone] Referring Provider: Leonardo Lenoe MD, [address], [place], [address]. tel:[phone] [facility], [address], [place], [place], [address], [place] tel:[phone] [place] Professional Blurry/decr eased vision (chief complaint) Postop check 4 Herrera OD Cony. [address] [place] [address] [address], [address], [place], [place], [address], [place]. tel:[phone] Referring Provider: Leonardo Leone MD, [address], [place], [address]. tel:[phone] [facility], [address] [place] [address] [address], [place], [place], [address], tel:[phone] SEC [place] Professional 1 Day CE/IOL LensAR PO (chief complaint) Postop check 4 Herrera OD Cony. [address] [place] [address] [address], [address], [place], [place], [address], [place]. tel:[phone] Referring Provider: Leonardo Leone MD, [address], [place], [address]. tel:[phone] [facility], [address] [place] [address] [address], [place], [place], [address], [place] tel:[phone] [place] [facility] [place] No Information 4 Gazelle Markus. [address] [place] [address] [employer] [place], [address], [place], [place], [address], [place]. tel:[phone] Referring Provider: Leonardo Leone MD, [address], [place], [address]. tel:[phone] [facility], [address] [place] [address] [address], [place], [place], [address], [place] tel:[phone] [place] No Information 4 Guillermo Markus. [address] [place] [address] [employer] [place], [address], [place], [place], [address], [place]. tel:[phone] Referring Provider: Leonardo Leone MD, [address], [place], [address]. tel:[phone] [facility], [address] [place] [address] [address], [place], [place], [address], [place] tel:[phone] [place]SO Professional Post-Op (chief complaint) Postop check 4 Luis M OD Alyssa. [address] [place] [address] [employer] [place], [address], [place], [place], [address], [place]. tel:[phone] Referring Provider: Leonardo Leone MD, [address], [place], [address]. tel:[phone] [facility], [address] [place] [address] [address], [place], [place], [address], tel:[phone] SEC [facility] Professional 1 Day CE/IOL PO (chief complaint) Postop check 4 Herrera OD Cony. [address] [place] [address] [address], [address], [place], [place], [address], [place]. tel:[phone] Referring Provider: Leonardo Leone MD, [address], [place], [address]. tel:[phone] [facility], [address] [place] [address] [address], [place], [place], [address], tel:[phone] [facility] No Information 4 Guillermo Markus. [address] [place] [address] [employer] [place], [address], [place], [place], [address], . tel:[phone] Referring Provider: Leonardo Leone MD, [address], [place], [address]. tel:[phone] [facility], [address] [place] [address] [address], [place], [place], [address], tel:[phone] [place] No Information 4 Guillermo Markus. [address] [place] [address] [employer] [place], [address], [place], [place], [address], [place]. tel:[phone] Referring Provider: Leonardo Leone MD, [address], [place], [address]. tel:[phone] Office/outpa tient Visit, Est [facility], [address] [place] [address] [address], [place], [place], [address], tel:[phone] [place] Cataract evaluation (chief complaint) Combined forms of age-related cataract, bilateralPVD (posterior vitreous detachment), bilateralCho roidal nevus, right eye May- 4 Gazelle Markus. [address] [place] [address] [employer] [place], [address], [place], [place], [address], [place]. tel:[phone] Referring Provider: Leonardo Leone MD, [address], [place], [address]. tel:[phone] Office/outpa tient Visit, Est [facility], [address] [place] [address] [address], [place], [place], [address], [place] tel:[phone] [place] Professional blurry vision and floaters (chief complaint) Combined forms of age-related cataract, bilateralPVD (posterior vitreous detachment), bilateral Apr- 4 Luis M OD Alyssa. [address] [place] [address] [employer] [place], [address], [place], [place], [address], [place]. tel:[phone] Referring Provider: Leonardo Leone MD, [address], [place], [address]. tel:[phone] [facility], [address] [place] [address] [address], [place], [place], [address], [place] tel:[phone] [place] Professional Complete Exam (chief complaint) Combined forms of age-related cataract, bilateralHis tory of strokeChoroi liv nevus, right eye Rick- 3 Daren Talley. [address] [facility], [place], [address], [place]. tel:[phone] Referring Provider: Leonardo Leone MD, [address], [place], [address]. tel:[phone] [facility], [address] [place] [address] [address], [place], [place], [address], [place] tel:[phone] [place] Professional Complete Exam (chief complaint) Choroidal nevus, right eyeCombined forms of age-related cataract, bilateralHis tory of strokePVD (posterior vitreous detachment), bilateralSub jective visual disturbance, bilateral May- 2 Daren Talley. [address] [facility], [address], [place], [place], [address], . tel:[phone] Referring Provider: Leonardo Leone MD, [address], [place], [address]. tel:[phone] [facility], [address], [place], [place], [address], tel:[phone] [place] Professional Complete Exam (chief complaint) Combined forms of age-related cataract, bilateralCho roidal nevus, right eyeDermatoch alasis of both upper eyelids 1 Daren Talley. [address], [facility] A, [place], [place], [address], . tel:[phone] Referring Provider: Leonardo Leone MD, [address], [place], [address]. tel:[phone] [facility], [address], [place], [place], [address], tel:[phone] [place] Professional No Information 1 Daren Talley. [address], [facility] A, [place], [place], [address], . tel:[phone] Family History Family Member Type Diagnosis Age At Onset No Information Payers Payer name Insurance type Covered constitution party ID Authorcristia lou(s) Medicare [place] [id number] [facility] [id number] Social History Type Description Quantity Date Captured [...] 3 years ago. 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
[2024-10-21 22:04] VITALS: BP 157/67; PULSE 50; RESP 17; TEMP 36.7; O2SAT 98
--- NOTE | 2024-10-21 22:07 | ED_ITS ---
HPI - Fall General Chief Complaint: Trauma Stated Complaint: injury left hip-fell down steps Time Seen by Provider: 10/21/24 22:02 Source: patient and family Limitations: no limitations History of Present Illness HPI Narrative: 79 yo presents with left hip/proximal leg pain after accidentally falling down 3-4 stairs outside of a residence. 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 History of sciatica for which he receives injections (total of 7, performed by Jose and Dr Pryor at [place]). Denies paresthesias. Related Data Home Medications ?Medication ?Instructions ?Recorded ?Confirmed ?Last Taken ?Type glucosamine-chondroitin 250 mg-200 1 tablet PO DAILY 06/12/20 07/12/24 12/15/23 History mg tablet (Osteo Bi-Flex) multivitamin 1 tablet PO DAILY 06/12/20 07/12/24 12/15/23 History aspirin 81 mg chewable tablet 81 mg PO DAILY 12/24/22 07/12/24 12/12/23 History (Wisam Chewable Low Dose Aspirin) Allergies Allergy/AdvReac Type Severity Reaction Status Date / Time Iodinated Contrast Media Allergy Mild Headache Verified 10/21/24 22:10 Penicillins Allergy Unknown unknown- Verified 10/21/24 22:10 A CHILD Lobster Allergy Unknown THROAT Uncoded 10/21/24 22:10 SWELLS PMFSH Past Medical History Medical History Lumbar radiculopathy Choking Aspiration into airway Chronic lumbar pain Left lumbar radiculopathy Psoriatic arthritis Right sciatic nerve pain History of CVA (cerebrovascular accident) Essential hypertension Gastro-esophageal reflux disease without esophagitis History of tobacco abuse Hx of hepatitis C DAGOBERTO (obstructive sleep apnea) Chronic rhinitis COPD (chronic obstructive pulmonary disease) Carpal tunnel syndrome Asbestosis Surgical History Surgical History H/O cataract removal with insertion of prosthetic lens History of back surgery History of repair of right rotator cuff (~08/22/20) Biceps Tenodesis History of uvulopalatopharyngoplasty Hx of cholecystectomy H/O arthroscopy of knee (~07/05/16) Partial Medial & Lateral Menisectomy Family History Family History Mother Family history of cardiovascular disease Family history of congenital heart disease Asthma Family history of coronary artery disease Father Carcinoma of colon Family history of cardiovascular disease, Onset Age: 87 Malignant neoplasm of prostate Sibling Carcinoma of colon Family history of malignant neoplasm of breast in first degree relative Patient's sister is in good health Social History Social History Years smoked: 15 Smoking status: Former smoker Tobacco type: cigarettes Smokeless tobacco user: chewing tobacco Second hand tobacco smoke exposure: Yes Additional smoking assessment comments: HX OF CHEWING TOBACCO - CALVIN ALL TOBACCO USE NOW Alcohol intake: former Alcohol use details: QUIT 1980 Substance use: never Substance use type: does not use Do You Feel Safe in your Home?: Yes Lack of Transportation: No Lack of Food: Never True Current Housing: Decline to Answer Concerned About Future Housing: Decline to Answer Difficulty Paying Gas/Electric Bills: Decline to Answer Difficulty Paying for Meds: Decline to Answer Currently Unemployed: Decline to Answer Education: Decline to Answer Difficulty w/ Childcare or Family Care: Decline to Answer Living arrangements: with family Occupation/Education: retired Spiritual care concerns: No Exam Narrative: GENERAL: Appears younger than stated age. Well-appearing, well-nourished HEAD: Normocephalic, atraumatic. EYES: Non injected, non icteric ENT: Nares clear, no rhinorrhea or epistaxis. Gross auditory acuity intact. NECK: Supple. No meningismus. CHEST: Speaking in full sentences. No respiratory distress. HEART: Bradycardic rate and rhythm. . ABDOMEN: Soft, nondistended. No rigidity or guarding. Not peritoneal EXTREMITIES: No lower extremity edema. Skin intact overlying left hip; patient's pain at proximal femur on the left/near hip joint. No TTP; pelvis stable to compression. No ecchymosis. Legs of near equal length - no shortening or lengthening and not particularly rotated. Left arm with near full ROM particularly at the elbow, no TTP throughout. Well healed scars along L forearm. SKIN: Warm, dry, abrasion left elbow, bleeding well controlled NEURO: No focal deficits. Alert and oriented. Answering questions. Following commands. Normal speech without aphasia or dysarthria. Sensation intact throughout legs. PSYCH: Congruent mood and affect. Course Vital Signs Vital signs: Vital Signs Temperature 98.0 F 10/21/24 22:04 Pulse Rate 50 L 10/21/24 22:04 Respiratory Rate 17 10/21/24 22:04 Blood Pressure 157/67 H 10/21/24 22:04 Pulse Oximetry 98 10/21/24 22:04 Oxygen Delivery Room Air 10/21/24 22:04 Temperature 98.0 F 10/21/24 22:04 Pulse Rate 88 10/22/24 03:31 Respiratory Rate 16 10/22/24 03:31 Blood Pressure 133/77 10/22/24 03:31 Pulse Oximetry 97 10/22/24 03:31 Oxygen Delivery Room Air 10/21/24 22:04 MDM - Fall MDM Narrative Medical decision making narrative: Patient presents as a trauma after a fall in which he landed on left hip; having pain here (particularly at the proximal femur). In the emergency department he is bradycardic with mild hypertension. Per review of the EMR, patient is persistently bradycardic in the 50s to 60, chronically. Plain film Imaging as below. He does not have point tenderness at the elbow. Patient had declined opiate therapy; told RN he was in recovery. APAP and ketorolac given instead. Initial plan was discharge however he does seem to be having tremendous pain and difficulty ambulating, observed attempting to transfer from wheelchair to standing and to bathroom toilet. Pain still at the same location as initially. Will proceed with CT imaging. As below, also negative. Stable for discharge. Advised follow up. Prescribed OTC analgesic medication and lidocaine patches. Differential Diagnosis Differential diagnosis: Likely compression fracture and other (fracture/dislocation; bony contusion; labral tear; hematoma/seroma) Imaging Data Radiologist's impression: IMPRESSION: Degenerative disease, as detailed above. Osseous loose body adjacent to the lateral condyle of the left elbow possibly an acute fracture for which clinical correlation is needed regarding point tenderness. Elbow joint effusion. IMPRESSION: Degenerative disease, without acute fracture or dislocation. CT stat rad Left Hip: No acute fracture dislocation. No incidental findings. Discharge Plan Discharge Clinical Impression: Degenerative joint disease of elbow, left, Effusion, left elbow, Fall, Abrasion of elbow, left, DDD (degenerative disc disease), lumbar, Acute pain of left hip Patient Disposition: Home Condition: Stable Instructions: Antibiotic Form, Fall Prevention for Older Adults (ED), Abrasion (ED), Degenerative Disc Disease (ED), Hip Pain (ED) Additional Instructions: There do not appear to be any acute fractures or dislocations on your imaging. There was notion of a possible chip/fracture as we discussed, however this is likely due to your previous trauma/injury and is not subacute. You are likely to be very sore and achy over the next several days. Use the combination of medications prescribed to help you balance some rest with staying active and moving. Acetaminophen/Tylenol (maximum 4000 mg per day) is safe to take with NSAIDs (ibuprofen/Motrin) for pain relief. You can also use the topical lidocaine patch. Follow-up with your primary care physician. Return to the emergency department with any new or worsening symptoms. Return to the ER if you have increased pain in your back, you develop lower extremity weakness/numbness/paralysis, you have numbness or tingling in your private parts, or you are unable to control your ability to urinate/stool. Patient Language: Marshallese Prescriptions: New acetaminophen 500 mg capsule 1,000 mg PO Q6H PRN (Reason: pain) Qty: 30 0RF lidocaine 4 % adhesive patch,medicated 1 patch topical DAILY PRN (Reason: pain) Qty: 10 0RF ibuprofen 600 mg tablet 600 mg PO TID PRN (Reason: pain) Qty: 30 0RF No Action glucosamine-chondroitin [Osteo Bi-Flex] 250-200 mg tablet 1 tablet PO DAILY Rx Instructions: give after food/meal multivitamin Tablet 1 tablet PO DAILY aspirin [Wisam Chewable Aspirin] 81 mg tablet,chewable 81 mg PO DAILY valsartan [Diovan] 80 mg tablet 80 mg PO DAILY Qty: 90 1RF albuterol sulfate 90 mcg/actuation HFA aerosol inhaler 2 puff inhalation Q4H PRN (Reason: Shortness Of Breath Or Wheezing) Qty: 6.7 3RF psyllium husk [Metamucil] 0.4 gram capsule 0.4 gm PO DAILY Qty: 30 0RF Rx Instructions: take 4 capsule every day amlodipine 10 mg tablet 10 mg PO QAM Qty: 90 1RF Follow-up/Referrals: Steve Baptiste DO [Primary Care Provider] - Time of Disposition: 00:16
[2024-10-21] MEDS: ACETAMINOPHEN 500 MG TABLET 1000 MG PO (22:16)
[2024-10-21 23:11] VITALS: BP 117/73; PULSE 51; RESP 18; O2SAT 97
--- OUTSIDE RECORDS SUMMARY | 2024-10-21 23:25 | XMS_ITS | Clinical Summary ---
Author Organization [facility] Address [address], [facility] [address] [place] [address] Phone Care Team Providers Care Splunk Architect Name Role Phone Nick Jessica DO Primary Care Provider [phone] Allergies No known active allergies Medications amLODIPine [...] patient's age to complete this [place] [address] MEDICARE Care Teams Splunk Architect Relationship Specialty Start Date End Date Nick Jessica DO [address] [facility] [address] [place] [address] PCP - General Internal Medicine 12/08/18
--- OUTSIDE RECORDS SUMMARY | 2024-10-21 23:25 | XMS_ITS | Continuity of Care Document ---
Author Organization [facility] [place] [address] [place] [address] Phone Care Team Providers Care Seafood Farmer Name Role Phone Cony Silverman OD Unavailable [...] Copied on Encounter Office/outpa tient Visit, [facility], [address], [place], [place], [address], [place] tel:[phone] SEC [place] Professional Dry Eye Evaluation (chief complaint) Dry eye syndrome of bilateral lacrimal glands 4 Herrera OD Cony. [address], [place], [place], [address], [place]. tel:[phone] Referring Provider: Leonardo Leone MD, [address], [place], [address]. tel:[phone] [facility], [address], [place], [place], [address], tel:[phone] [place] Professional Post-Op (chief complaint) Dry eye syndrome of bilateral lacrimal glands 8 4 Herrera OD Cony. [address] [place] [address] [address], [place], [place], [address], [place]. tel:[phone] Referring Provider: Leonardo Leone MD, [address], [place], [address]. tel:[phone] [facility], [address] [place] [address] [address], [place], [place], [address], tel:[phone] SEC [place] 2 week postop visit (chief complaint) Postop check 4 Herrera OD Cony. [address] [place] [address] [address], [place], [place], [address], [place]. tel:[phone] Referring Provider: Leonardo Leone MD, [address], [place], [address]. tel:[phone] [facility], [address], [place], [place], [address], [place] tel:[phone] [place] Professional Blurry/decr eased vision (chief complaint) Postop check 4 Herrera OD Cony. [address] [place] [address] [address], [place], [place], [address], [place]. tel:[phone] Referring Provider: Leonardo Leone MD, [address], [place], [address]. tel:[phone] [facility], [address] [place] [address] [address], [place], [place], [address], tel:[phone] SEC [place] Professional 1 Day CE/IOL LensAR PO (chief complaint) Postop check 4 Herrera OD Cony. [address] [place] [address] [address], [address], [place], [place], [address], [place]. tel:[phone] Referring Provider: Leonardo Leone MD, [address], [place], [address]. tel:[phone] [facility], [address] [place] [address] [address], [place], [place], [address], [place] tel:[phone] [facility] [place] No Information 4 Candler Markus. [address] [place] [address] [facility], [address], [place], [place], [address], [place]. tel:[phone] Referring Provider: Leonardo Leone MD, [address], [place], [address]. tel:[phone] [facility], [address] [place] [address] [address], [place], [place], [address], [place] tel:[phone] [place] No Information 4 Guillermo Markus. [address] [place] [address] [employer] [facility], [address], [place], [place], [address], [place]. tel:[phone] Referring Provider: Leonardo Leone MD, [address], [place], [address]. tel:[phone] [facility], [address] [place] [address] [address], [place], [place], [address], [place] tel:[phone] SEC [place]ONSO Professional Post-Op (chief complaint) Postop check 4 Luis M OD Alyssa. [address] [place] [address] [employer] [facility], [address], [place], [place], [address], [place]. tel:[phone] Referring Provider: Leonardo Leone MD, [address], [place], [address]. tel:[phone] [facility], [address] [place] [address] [address], [place], [place], [address], tel:[phone] SEC [facility] Professional 1 Day CE/IOL PO (chief complaint) Postop check 4 Herrera OD Cony. [address] [place] [address] [address], [address], [place], [place], [address], [place]. tel:[phone] Referring Provider: Leonardo Leone MD, [address], [place], [address]. tel:[phone] [facility], [address] [place] [address] [address], [place], [place], [address], tel:[phone] [facility] No Information 4 Guillermo Markus. [address] [place] [address] [employer] [facility], [address], [place], [place], [address], . tel:[phone] Referring Provider: Leonardo Leone MD, [address], [place], [address]. tel:[phone] [facility], [address] [place] [address] [address], [place], [place], [address], tel:[phone] [place] No Information 4 Guillermo Maruks. [address] [place] [address] [facility] [facility], [address], [place], [place], [address], [place]. tel:[phone] Referring Provider: Leonardo Leone MD, [address], [place], [address]. tel:[phone] Office/outpa tient Visit, Est [facility], [address] [place] [address] [address], [place], [place], [address], tel:[phone] [place] Cataract evaluation (chief complaint) Combined forms of age-related cataract, bilateralPVD (posterior vitreous detachment), bilateralCho roidal nevus, right eye May- 4 Candler Markus. [address] [place] [address] [employer] [facility], [address], [place], [place], [address], [place]. tel:[phone] Referring Provider: Leonardo Leone MD, [address], [place], [address]. tel:[phone] Office/outpa tient Visit, [facility], [address] [place] [address] [address], [place], [place], [address], [place] tel:[phone] SEC [place] Professional blurry vision and floaters (chief complaint) Combined forms of age-related cataract, bilateralPVD (posterior vitreous detachment), bilateral Apr- 4 Luis M OD Alyssa. [address] [place] [address] [employer] [facility], [address], [place], [place], [address], [place]. tel:[phone] Referring Provider: Leonardo Leone MD, [address], [place], [address]. tel:[phone] [facility], [address] [place] [address] [address], [place], [place], [address], [place] tel:[phone] SEC [place] Professional Complete Exam (chief complaint) Combined forms of age-related cataract, bilateralHis tory of strokeChoroi liv nevus, right eye Rick- 3 Daren Talley. [address], [address] [place], [address], [place]. tel:[phone] Referring Provider: Leonardo Leone MD, [address], [place], [address]. tel:[phone] [facility], [address] [place] [address] [address], [place], [place], [address], [place] tel:[phone] [place] Professional Complete Exam (chief complaint) Choroidal nevus, right eyeCombined forms of age-related cataract, bilateralHis tory of strokePVD (posterior vitreous detachment), bilateralSub jective visual disturbance, bilateral May- 2 Daren Talley. [address] [facility], [place], [place], [address], . tel:[phone] Referring Provider: Leonardo Leone MD, [address], [place], [address]. tel:[phone] [facility], [address], [place], [place], [address], tel:[phone] SEC [place] Professional Complete Exam (chief complaint) Combined forms of age-related cataract, bilateralCho roidal nevus, right eyeDermatoch alasis of both upper eyelids 1 Daren Talley. [address], [facility] [address], [place], [place], [address], . tel:[phone] Referring Provider: Leonardo Leone MD, [address], [place], [address]. tel:[phone] [facility], [address], [place], [place], [address], tel:[phone] SEC [place] Professional No Information 1 Daren Talley. [address], [facility] [address], [place], [place], [address], . tel:[phone] Family History Family Member Type Diagnosis Age At Onset No Information Payers Payer name Insurance type Covered green party ID Authorcristia lou(s) [place] [id number] [facility] [id number] Social History Type Description Quantity Date Captured [...] 3 years ago. 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
--- OUTSIDE RECORDS SUMMARY | 2024-10-21 23:25 | XMS_ITS | Clinical Summary ---
Author Organization [facility] Address [address] [place] [address] Care Team Providers Care Print Manager Name Role Phone No, Pcp Primary Care [...] 1 tablet by mouth daily Active glucosam-chond- [id number]-bor 561-140-22-0.5 mg tablet Take by mouth Active FIBER-CAPS, [...] patient's age to complete this topic Insurance [facility] MEDICARE PART A AND B Care Teams Print Manager Relationship Specialty Start Date End Date No, Pcp PCP - General Family Medicine 09/04/22
--- NOTE | 2024-10-22 00:19 | PC.NURSE ---
Pt refuses toradol at this time. Pt states he only takes tylenol.
[2024-10-22] MEDS: LIDOCAINE 5% PATCH 1 PATCH TRANSDERM (00:50)
[2024-10-22 03:31] VITALS: BP 133/77; PULSE 88; RESP 16; O2SAT 97
== END 2024-10-22 03:32 | disposition home or self-care (01) ==
PROVIDERS: Emergency Provider Student in an Organized Health Care Education/Training Program; PCP Internal Medicine
DX: S79.912A Unspecified injury of left hip, initial encounter (principal); S50.312A Abrasion of left elbow, initial encounter; M51.369 Other intervertebral disc degeneration, lumbar region without mention of lumbar back pain or lower extremity pain; M25.422 Effusion, left elbow; M19.022 Primary osteoarthritis, left elbow; I10 Essential (primary) hypertension; J44.9 Chronic obstructive pulmonary disease, unspecified; J61 Pneumoconiosis due to asbestos and other mineral fibers; L40.50 Arthropathic psoriasis, unspecified; K21.9 Gastro-esophageal reflux disease without esophagitis; Z86.73 Personal history of transient ischemic attack (TIA), and cerebral infarction without residual deficits; Z86.19 Personal history of other infectious and parasitic diseases; Z87.891 Personal history of nicotine dependence; Z96.1 Presence of intraocular lens; Z98.49 Cataract extraction status, unspecified eye; Z90.49 Acquired absence of other specified parts of digestive tract; Z79.82 Long term (current) use of aspirin; Z79.899 Other long term (current) drug therapy; W10.9XXA Fall (on) (from) unspecified stairs and steps, initial encounter
CPT/HCPCS: 73070; 73502; 73700; 99284; A9270

== ENCOUNTER 2024-11-02 11:03 | Outpatient (CLI) | payer MEDICARE, OTHER, SELFPAY ==
--- NOTE | ~2024-11-02 | MR_ITS ---
EXAMINATION: MR hip LT wo con DATE: 11/02/2024 11:55 INDICATION: Severe left hip pain 2 weeks post fall TECHNIQUE: Magnetic resonance imaging (MRI) of the left hip was performed without intravenous contrast. Sequences included full-field axial PD-weighted FS FSE and T1-weighted FSE, coronal of the pelvis with PD-weighted FS FSE, small field of view of the left hip with axial PD-weighted FS FSE, sagittal PD- weighted FS FSE and coronal PD weighted FS FSE. Additional radial T1-weighted FGR oriented orthogonal to the acetabular rim were obtained for evaluation of the labrum. COMPARISON: None FINDINGS: Bones/labrum/cartilage: Alignment is normal. No fracture, avascular necrosis or pathologic marrow replacing process. Diffuse degenerative tearing of the left acetabular labrum. There is mild osteoarthritis at the left hip with nonuniform joint space narrowing with partial-thickness cartilage loss most prominent along the sup erolateral the posterior lateral aspect of the joint space where there is mild subarticular edema-like signal change along the posterior lateral rim of the left acetabulum. Mild osteoarthritis seen at the right hip with additional mild subarticular edema-like signal change at the superolateral right acetabulum. Mild lumbar spondylosis. Fluid: Symmetric physiologic amount of fluid within both hip joints. Soft tissues: Normal and symmetric muscle bulk and signal in the pelvis and visualized proximal thighs. Mild tendinopathy without discrete tear at the bilateral iliopsoas tendons. Mild tendinopathy without tear at the proximal right hamstring tendons. There is mild tendinopathy at the left proximal hamstring tendons with avulsion and 3 cm distal retraction from the ischial tuberosity origin of the conjoined semitendinosus and biceps femoris tendon. There is a small high T2 and T1 signal intensity hematoma at the tear defect. Mild tendinopathy at the bilateral gluteus medius and minimus tendons. There is some retraction of portions of the myotendinous junction along the bilateral gluteus medius tendons consistent with chronic small partial tears at the greater trochanteric insertion. Small amount of fluid along the distal left radius minimus tendon without discrete tear consistent with mild displacement as burs itis. Mild increased fluid signal overlying the bilateral greater trochanters consistent with mild bilateral trochanteric bursitis. Prostatomegaly. There is moderate colonic sigmoid diverticulosis without adjacent inflammatory change to suggest diverticulitis. Visualized bowels are otherwise unremarkable including normal appendix. small fat-containing right inguinal hernia. Small fat- containing umbilical hernia. No pathologically enlarged pelvic/inguinal lymphadenopathy. IMPRESSION: 1. Likely recent high-grade partial tear with 3 cm distal retraction of the majority of the conjoined semitendinosus, biceps femoris tendon from its initial tuberosity origin with small surrounding hematoma. 2. Mild tendinopathy of the bilateral gluteus medius and minimus tendons and bilateral iliopsoas tendons with likely chronic mild partial tears of the distal bilateral gluteus medius tendons. 3. Mild left gluteus minimus bursitis and mild bilateral trochanteric bursitis. 4. Mild left hip osteoarthritis with likely chronic diffuse labral degeneration. 5. Small fat-containing umbilical and right inguinal hernias. 6. Prostatomegaly. 7. Sigmoid diverticulosis. Reviewed, dictated and finalized at location A. IMPRESSION: 1. Likely recent high-grade partial tear with 3 cm distal retraction of the hugo ority of the conjoined semitendinosus, biceps femoris tendon from its initial t uberosity origin with small surrounding hematoma. 2. Mild tendinopathy of the bilateral gluteus medius and minimus tendons and bi lateral iliopsoas tendons with likely chronic mild partial tears of the distal bilateral gluteus medius tendons. 3. Mild left gluteus minimus bursitis and mild bilateral trochanteric bursitis. 4. Mild left hip osteoarthritis with likely chronic diffuse labral degeneration . 5. Small fat-containing umbilical and right inguinal hernias. 6. Prostatomegaly. 7. Sigmoid diverticulosis.
== END 2024-11-02 11:04 | disposition home or self-care (01) ==
LOC: MICIMG 11:10
PROVIDERS: PCP Internal Medicine; Visit Provider Internal Medicine
DX: M16.12 Unilateral primary osteoarthritis, left hip (principal); K57.30 Diverticulosis of large intestine without perforation or abscess without bleeding; N40.0 Benign prostatic hyperplasia without lower urinary tract symptoms; K40.90 Unilateral inguinal hernia, without obstruction or gangrene, not specified as recurrent
CPT/HCPCS: 73721

== ENCOUNTER 2024-11-22 14:16 | Outpatient (CLI) | payer MEDICARE, OTHER, SELFPAY ==
--- OUTSIDE RECORDS SUMMARY | 2023-10-27 04:00 | XMS_ITS | Continuity of Care Document ---
Author Organization [facility] Address [address] [place] [address] Phone Care Team Providers Care Copy Supervisor Name Role Phone Cony Silverman OD Unavailable Unavailable Allergies, Adverse Reactions, Alerts Substance Reaction Status Criticality PENICILLIN Active No Information Medications Medication Instructions Dosage Effective Dates (start - stop) Status Comments iVizia (PF) 0.5 % eye drops 1 drop both eye four times a day both eyes - Active valsartan 80 mg tablet take 1 tablet by oral route every day 80 MG - Active amlodipine 10 mg tablet take 1 tablet by oral route every day 10 MG - Active Osteo Bi-Flex (5-Loxin) 1,500 mg-400 unit-100 mg tablet take 1 by oral route every day 1 - Active multivitamin tablet take 1 tablet by ora l route every day 1 tablet - Active aspirin 81 mg tablet,delayed release take 1 tablet by oral route every day 81 MG - Active Nexium 20 mg capsule,delayed release take 1 capsule by oral route every day at least 1 hour before a meal swallowing whole. Do not crush or chew granules. 20 MG - Active Zyrtec 10 mg tablet take 1 tablet by ora l route every day 10 MG - Active Ventolin HFA 90 mcg/actuation aerosol inhaler inhale 2 puff by inhalation route every 4 - 6 hours as needed 180 MCG - Active Procedures Procedure Date No Charge Optomap Fundus Photos Office/outpatient Visit, Est Post-op Follow-up Visit InflammaDry No Charge Refraction Post-op Follow-up Visit No Charge Refraction SCODI, Retina Post-op Follow-up Visit No Charge Optomap Fundus Photos 024 Remove Cataract, Post Op Care Laser Cataract SX Standard Remove Cataract, Insert Lens,Comanaged J IOLMaster-Professional No Charge Refraction Post-op Follow-up Visit Remove Cataract, Post Op Care 4 Remove Cataract, Insert Lens,Comanaged M IOLMaster-Professional No Charge GDX Retina No Charge Refraction Fundus Photography W/ Report Corneal Topography Office/outpatient Visit, Est IOLMaster-Technical No Charge Refraction No Charge Optomap Fundus Photos 024 Office/outpatient Visit, Est Fundus Photography W/ Report Eye Exam & Treatment Visual Field Examination(s) Fundus Photography W/ Report Eye Exam & Treatment Refraction Fundus Photography W/ Report Eye Exam, New Patient Advance Directives Directive Yes / No Effective Date File Name No Information Encounters Encounter Description Practice Location Reason(s) For Visit Diagnoses Date Provider Providers Copied on Encounter Office/outpa tient Visit, Est [facility], [address], [place], [place], [id number], [place] tel:[phone] [place] Dry Eye Evaluation (chief complaint) Dry eye syndrome of bilateral lacrimal glands 4 Herrera OD Cony. [address], [place], [place], [address], [place]. tel:[phone] Referring Provider: Leonardo Leone MD, [address], [place], [address]. tel:[phone] [facility], [address], [place], [place], [address], tel:[phone] [place] Professional Post-Op (chief complaint) Dry eye syndrome of bilateral lacrimal glands 8 4 Herrera OD Cony. [address] [place] [address] [address], [place], [place], [address], [place]. tel:[phone] Referring Provider: Leonardo Leone MD, [address], [place], [address]. tel:[phone] [facility], [address] [place] [address] [address], [place], [place], [address], tel:[phone] [place] 2 week postop visit (chief complaint) Postop check 4 Herrera OD Cony. [address] [place] [address] [address], [place], [place], [address], [place]. tel:[phone] Referring Provider: Leonardo Leone MD, [address], [place], [address]. tel:[phone] [facility], [address], [place], [place], [address], [place] tel:[phone] [place] Professional Blurry/decr eased vision (chief complaint) Postop check 4 Herrera OD Cony. [address] [place] [address] [address], [place], [place], [address], [place]. tel:[phone] Referring Provider: Leonardo Leone MD, [address], [place], [address]. tel:[phone] [facility], [address] [place] [address] [address], [place], [place], [address], tel:[phone] SEC [place] Professional 1 Day CE/IOL LensAR PO (chief complaint) Postop check 4 Herrera OD Cony. [address] [place] [address] [address], [address], [place], [place], [address], [place]. tel:[phone] Referring Provider: Leonardo Leone MD, [address], [place], [address]. tel:[phone] [facility], [address] [place] [address] [address], [place], [place], [address], [place] tel:[phone] [facility] No Information 4 Guillermo Markus. [address] [place] [address] ki work [facility], [address], [place], [place], [address], [place]. tel:[phone] Referring Provider: Leonardo Leone MD, [address], [place], [address]. tel:[phone] [facility], [address] [place] [address] [address], [place], [place], [address], [place] tel:[phone] [place] No Information 4 [place] Markus. [address] [place] [address] ki work [facility], [address], [place], [place], [address], [place]. tel:[phone] Referring Provider: Leonardo Leone MD, [address], [place], [address]. tel:[phone] [facility], [address] [place] [address] [address], [place], [place], [address], [place] tel:[phone] [facility] [place] ALON[place] Professional Post-Op (chief complaint) Postop check 4 Luis M OD Alyssa. [address] [place] [address] ki work [facility], [address], [place], [place], [address], [place]. tel:[phone] Referring Provider: Leonardo Leone MD, [address], [place], [address]. tel:[phone] [facility], [address] [place] [address] [address], [place], [place], [address], tel:[phone] [facility] Professional 1 Day CE/IOL PO (chief complaint) Postop check 4 Herrera OD Cony. [address] [place] [address] [address], [address], [place], [place], [address], [place]. tel:[phone] Referring Provider: Leonardo Leone MD, [address], [place], [address]. tel:[phone] [facility], [address] [place] [address] [address], [place], [place], [address], tel:[phone] [facility] No Information 4 [place] Markus. [address] [place] [address] ki work [facility], [address], [place], [place], [address], . tel:[phone] Referring Provider: Leonardo Leone MD, [address], [place], [address]. tel:[phone] [facility], [address] [place] [address] [address], [place], [place], [address], tel:[phone] [place] No Information 4 Guillermo Markus. [address] [place] [address] ki work [facility], [address], [place], [place], [address], [place]. tel:[phone] Referring Provider: Leonardo Leone MD, [address], [place], [address]. tel:[phone] Office/outpa tient Visit, Est [facility], [address] [place] [address] [address], [place], [place], [address], tel:[phone] [place] Cataract evaluation (chief complaint) Combined forms of age-related cataract, bilateralPVD (posterior vitreous detachment), bilateralCho roidal nevus, right eye May- 4 [place] Markus. [address] [place] [address] ki work [facility], [address], [place], [place], [address], [place]. tel:[phone] Referring Provider: Leonardo Leone MD, [address], [place], [address]. tel:[phone] Office/outpa tient Visit, Est [facility], [address] [place] [address] [address], [place], [place], [address], [place] tel:[phone] [place] Professional blurry vision and floaters (chief complaint) Combined forms of age-related cataract, bilateralPVD (posterior vitreous detachment), bilateral Apr- 4 Luis M OD Alyssa. [address] [place] [address] ki work [facility], [address], [place], [place], [address], [place]. tel:[phone] Referring Provider: Leonardo Leone MD, [address], [place], [address]. tel:[phone] [facility], [address] [place] [address] [address], [place], [place], [address], [place] tel:[phone] [place] Professional Complete Exam (chief complaint) Combined forms of age-related cataract, bilateralHis tory of strokeChoroi liv nevus, right eye Rick- 3 Daren Talley. [address] [facility], [place], [address], [place]. tel:[phone] Referring Provider: Leonardo Leone MD, [address], [place], [address]. tel:[phone] [facility], [address] [place] [address] [address], [place], [place], [address], [place] tel:[phone] [place] Complete Exam (chief complaint) Choroidal nevus, right eyeCombined forms of age-related cataract, bilateralHis tory of strokePVD (posterior vitreous detachment), bilateralSub jective visual disturbance, bilateral May- 2 Daren Talley. [address] [facility], [address], [place], [place], [address], . tel:[phone] Referring Provider: Leonardo Leone MD, [address], [place], [address]. tel:[phone] [facility], [address], [place], [place], [address], tel:[phone] [place] Professional Complete Exam (chief complaint) Combined forms of age-related cataract, bilateralCho roidal nevus, right eyeDermatoch alasis of both upper eyelids 1 Daren Talley. [address], [facility] [address], [place], [place], [address], . tel:[phone] Referring Provider: Leonardo Leone MD, [address], [place], [address]. tel:[phone] [facility], [address], [place], [place], [address], tel:[phone] [place] Professional No Information 1 Daren Talley. [address], [facility] [address], [place], [place], [address], . tel:[phone] Family History Family Member Type Diagnosis Age At Onset No Information Payers Payer name Insurance type Covered republican ID Authorcristia lou(s) [place] [id number] [facility] [id number] Social History Type Description Quantity Date Captured Comments Alcohol Use Details No Caffeine Use Details No Tobacco Use Status Ex-cigarette smoker 024 Smoking Status Former smoker Smoking Tobacco Use Details Cigarette: Age Stopped: 6 Cigarette: No Details Available Sex Male Chief Complaint And Reason For Visit From encounter dated '10/27/2023 09:00'. Dry Eye Evaluation (chief complaint). Description: The 78 year old patient presents for evaluation of Dry Eye Evaluation in the right eye and left eye. Pt states no changes in OU since last visit. Ptis alternating between both dry eyes gtts at this moment. Pts Speed score today was 0/28 and TBUT OD 11.34 and OS 14.98 Reason For Referral Reason For Referral No Information Plan Of Treatment Date Type Action Status Goal Tobacco cessation counseling completed Goal Tobacco cessation counseling completed Goal Tobacco cessation counseling completed Goal Tobacco cessation counseling completed Goal Tobacco cessation counseling completed Goal Tobacco cessation counseling completed Goal Tobacco cessation counseling completed Patient Education Cataracts: Care Instruc tions completed Patient Education Cataracts: Care Instruc tions completed Patient Education Cataracts: Care Instruc tions completed Patient Education Cataracts: Care Instruc tions completed History Of Present Illness Encounter Date Complaint History Of Prese nt Illness Dry Eye Evaluation The 78 year o ld patient presents for evaluation of Dry Eye Evaluation in the right eye and left eye. Pt states no changes in OU since last visit. Pt is alternating between both dry eyes gtts at this moment. Pts Speed score today was 0/28 and TBUT OD 11.34 and OS 14.98 Post-Op The 78 year old patient presents for evaluation of 2-3 week CE/IOL + LensAR Post-Op/Follow Up in the right eye. Pt reports he is finished with all gtts. Pt states he liked the Miebo, however the cost is of concern. Pt states the OD still feels achy, not sure if it is dry or if it is something more. 2 week postop visit The 78 year old patient presents for evaluation of 2 week postop visit in the right eye. Pt states vision is still blurry in OD. Blurry/decreased vision The 78 y ear old patient presents for evaluation of Blurry/decreased vision in the right eye. Pt states there is still a aching pain still in OD and pt states that OD cant seem to focus or seems blurry pt states. 1 Day CE/IOL LensAR PO The 78 ye ar old patient presents for evaluation of 1 Day CE/IOL LensAR PO in the right eye. Pt states there was no pain or discomfort yesterday but today pt woke up with OD sore and aching. Pt feels like the socket is still in there. Pt states that vision still seems blurry but does seem brighter than before. Pt has all gtts and understands how to take them as instructed. Post-Op The 78 year old patient presents for a 2 week post op CE OS. Patient is using Ketorolac tid OS and Pred bid OS. Patient states OS is doing good. Patient wishes to proceed with CE OD. Patient has a hard time driving at night due to glare. Patient has a hard time seeing his IPAD and seeing road signs x 1 year. 1 Day CE/IOL PO The 78 year old patient presents for evaluation of 1 Day CE/IOL PO in the left eye. Pt states that there is a slight pain in OS almost like a eyelash or something pt states. Pt states that vision is brighter than before but still seems oma blurry. Pt has all gtts and understands how to take them as instructed. Cataract evaluation The 78 year old patient presents for evaluation of Cataract evaluation in the right eye and left eye. Pt states he has quite a lot of floaters OU, and blurred vision OU. Pt had mild stroke almost 3 years ago. 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 Pt states he has noticed blur slowly over last few years OU. Pt states he is having trouble seeing his games on his iPad in the evenings OU, pt states he avoids driving at night due to the poor vision OU, pt has trouble with glare from bright lights OU. blurry vision and floaters The 6 0 year old patient presents for evaluation of blurry vision in the right eye and left eye. Patient states starting last week the temporal vision left eye has been fuzzy and harder to see out of. Patient has floaters, but they've been there for years, no increase with blurry peripheral vision. Pt states he had a headache on the left side the same day this occurred. Denies FOL. When reading in the morning, will sometimes notice blurry vision. Patient had a mild stroke on the left side 2 years ago. Complete Exam The 77 year old patient presents for a complete exam ou. Patient states his eyes tear a lot when reading. Patient likes to read the bible. Monitoring CR Nevus OS. Complete Exam The 76 year old patient presents for evaluation of Complete Exam in the right eye and left eye. Hx of CR Nevus OD and Cataracts OU. Patient states he had a stroke in June and his right eye is dry now. Patient states the stroke affected the left side of body. Patient not sure if VA has changed. Patient declined a new rx for glasses. Complete Exam The 75 year old male presents for a complete exam per Dr. Leone. Patient states at night the stars around lights are a bit bothersome. Patient c/o eyes water a lot in the morning. Patient is having rotator cuff sx on August 22. Functional Status Date Functional Assessmen t No Information Instructions Date Instruction Additional Infor kiki Impression/Plan Impression/Plan Impression/Plan Impression/Plan Impression/Plan Impression/Plan Impression/Plan Impression/Plan Impression/Plan Impression/Plan Impression/Plan Impression/Plan Assessments Type Assessment Date assessment Dry eye syndrome of bilateral la crimal glands Patient Care Teams Name Effective Dates (start - stop) Status Members No Information
--- OUTSIDE RECORDS SUMMARY | 2024-11-22 14:19 | XMS_ITS | Clinical Summary ---
Author Organization [facility] Address [address], [facility] [address] [place] [address] Phone Care Team Providers Care Mortarman Name Role Phone Nick Jessica DO Primary Care Provider [phone] Allergies No known active allergies Medications amLODIPine [...] (Adult) (1 - 1-dose 75+ series) 05/30/2018 Influenza Immunization (#1) 11/15/202411/15, 11/02/2016, 11/15/2015, Additional history exists SARS-COV-2 Immunization ( season) 2024 01/08/2021, 05/20/2020 DTaP/Tdap/Td Immunization Discontinued 01/31/2017 TdaP Immunization Completed [...] patient's age to complete [place] [address] MEDICARE Care Teams Mortarman Relationship Specialty Start Date End Date Nick Jessica DO [address] [address] PCP - General Internal Medicine 12/08/18
--- OUTSIDE RECORDS SUMMARY | 2024-11-22 14:19 | XMS_ITS | Clinical Summary ---
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 measuring upto 1.9 x 0.8 cm at the periportal region. RETROPERITONEUM: No mass or adenopathy. VASCULATURE ABDOMEN: No abdominal aortic aneurysm. No major occlusion or flow limiting stenosis. Minimal ectasia of the infrarenal abdominal aorta measuring up to 2.1 x 2.3 cm. Moderate diffuse atherosclerosis. MUSCULOSKELETAL ABDOMEN: Multilevel degenerative disc disease. OTHER: Small fat containing umbilical hernia. IMPRESSION: No acute process in the chest, abdomen, or pelvis. Mild enlargement of main pulmonary artery, as seen with pulmonary hypertension. Bilateral calcified pleural plaques. Scattered pulmonary micro nodules,not definitely seen on prior examination and measuring less than 0.6 cm. Recommend adherence to follow-up guidelines below. Scattered hepatic and renal cysts. Colonic diverticulosis. Please see additional findings above. THIS IS AN ELECTRONICALLY VERIFIED FINAL REPORT 06/23/2021 4:13 PM - Electronically signed by Yesika Hansen M.D. BG: Report ID: [id number] Reading Location: [place] [id number] [place] Lanre Nuñez MD IMG CT PROCEDURES E dited Result - Final from Last 3 Months or Most Recently Relevant to Health Maintenance Insurance MEDICARE [facility] MEDICARE [facility] MEDICARE [facility] Address: [id number] [place] [address] INDIGO Jean Baptiste [id number] Care Teams Patient Liaison Relationship Specialty Start Date End Date Christie Campa MD [address] [place] [address] PCP - General Dermatology 08/11/24
--- OUTSIDE RECORDS SUMMARY | 2024-11-22 14:19 | XMS_ITS | Clinical Summary ---
Author Organization [facility] Address [address] [place] [address] Care Team Providers Care Call Center Support Representative Name Role Phone No, Pcp Primary Care [...] 1 tablet by mouth daily Active glucosam-chond- [id number]-[id number]-bor [id number] mg tablet Take by mouth Active FIBER-CAPS, [...] COVID-19 Vaccine (1 - 2023-2 5 season) 2024 Influenza Vaccine (#1) 2024 HIB Vaccines Aged [...] patient's age to complete this topic Insurance [facility] MEDICARE PART A AND B Care Teams Call Center Support Representative Relationship Specialty Start Date End Date No, Pcp PCP - General Family Medicine 09/04/22
[2024-11-22 18:32] LABS: Hematocrit 40.4 % (42.0-52.0); Hemoglobin 13.0 g/dL (14.0-18.0); Immature Granulocyte Percent A 0.3 % (0-0.5); Lymphocytes Absolute Auto 1.75 K/mm3 (0.9-3.2); Mean Corpuscular HGB Conc 32.2 g/dl (32-36); Mean Corpuscular Hemoglobin 28.3 pg (26-34); Mean Corpuscular Volume 87.8 fl (80-100); Nucleated Red Blood Cells Absolute Auto 0.000 K/mm3 (0.0-0.012); Nucleated Red Blood Cells Perc 0.0 % (0.0-0.2); Platelet Count Result 174 k/mm3 (150-375); Red Blood Count 4.60 M/mm3 (4.6-6.20); White Blood Count 6.4 K/mm3 (4.5-10.0)
[2024-11-22 18:48] LABS: Alanine Aminotransferase 16 U/L (6-50); Albumin Level 3.9 g/dL (3.5-5.1); Alkaline Phosphatase 69 U/L (38-126); Anion Gap 6 mmol/L (4-12); Aspartate Amino Transferase 38 U/L (17-59); Bilirubin,Total 0.2 mg/dL (0.2-1.3); Blood Urea Nitrogen 20 mg/dL (9-20); Calcium 9.0 mg/dL (8.4-10.2); Carbon Dioxide 28 mmol/L (22-30); Chloride 105 mmol/L (98-107); Estimated Glomerular Filt Rate > 60; Glucose 96 mg/dL (65-110); Potassium 3.8 mmol/L (3.4-5.0); Sodium 139 mmol/L (137-145); Total Protein 6.7 g/dL (6.3-8.2)
== END 2024-11-22 14:17 | disposition home or self-care (01) ==
LOC: ANHGOSHLAB 14:17
PROVIDERS: PCP Internal Medicine; Visit Provider Clinical Nurse Specialist
DX: G47.33 Obstructive sleep apnea (adult) (pediatric) (principal); I10 Essential (primary) hypertension; I63.9 Cerebral infarction, unspecified; R53.83 Other fatigue
CPT/HCPCS: 36415; 80053; 85025